=== PATIENT | female | born 1970 | race Caucasian/White ===

== ENCOUNTER 2020-10-09 20:25 | Emergency (ER) | payer OTHER, SELFPAY ==
[2020-10-09 20:36] VITALS: BP 140/75; PULSE 57; RESP 18; TEMP 36.9; O2SAT 99; BMI 44.0
== END 2020-10-09 23:13 | disposition left against medical advice (07) ==
LOC: HO.ED 23:14
PROVIDERS: Emergency Provider Emergency Medicine; PCP Pediatrics
DX: R11.2 Nausea with vomiting, unspecified (principal)
CPT/HCPCS: 99281; 99282

== ENCOUNTER → 2021-10-17 13:00 | Outpatient (BNVA) | payer OTHER, SELFPAY | PROVIDERS: PCP Nurse Practitioner Family; Referring Provider Physician Assistant Surgical; Visit Provider Counselor Mental Health | DX: F43.20 Adjustment disorder, unspecified (principal); E66.01 Morbid (severe) obesity due to excess calories | CPT/HCPCS: 90791 ==

== ENCOUNTER 2021-10-18 12:34 | Outpatient (REF) | payer OTHER, SELFPAY ==
--- NOTE | ~2021-10-18 | XR_ITS ---
EXAMINATION: XR CHEST CLINICAL INFORMATION: Bariatric service evaluation, E66.01 COMPARISON: Chest radiographs 11/28/2018 TECHNIQUE: 2 views of the chest were obtained. FINDINGS: Lungs are clear. No hyperinflation, infiltrate, or effusion. The cardiopericardial silhouette is normal in size. The vascularity is normal. The hilar and mediastinal contours and visualized bony structures are unremarkable. XR/XR chest 2V IMPRESSION: Unremarkable examination.
--- NOTE | 2021-10-18 13:15 | ECG_ITS ---
Test Reason : PREOP Blood Pressure : / mmHG Vent. Rate : 061 BPM Atrial Rate : 061 BPM P-R Int : 142 ms QRS Dur : 088 ms QT Int : 398 ms P-R-T Axes : 030 010 010 degrees QTc Int : 400 ms Normal sinus rhythm Normal ECG No previous ECGs available Referred By: Kalyan Schwab Electronically Signed By:Yrn Valdovinos
[2021-10-18 13:39] LABS: MANUAL DIFF FLAG NO
[2021-10-18 13:52] LABS: Basophils Percent Auto 0.3 % (0-2); Eosinophils Absolute Auto 0.2 X10*3/uL (0.0-0.4); Eosinophils Percent Auto 2.2 % (0-4); Hematocrit 38.6 % (37.0-47.0); Hemoglobin 12.7 g/dl (12.0-16.0); Imm Gran Abs Auto 0.02 X10*3/uL (0.00-0.03); Imm Gran Pct Auto 0.3 % (0.0-0.4); Lymphocytes Absolute Auto 1.1 X10*3/uL (1.2-4.9); Lymphocytes Percent Auto 15.8 % (20-40); Mean Corpuscular HGB Conc 32.9 g/dl (31.0-35.0); Mean Corpuscular Hemoglobin 31.7 pg (27.0-33.0); Mean Corpuscular Volume 96.3 fL (80.0-98.0); Mean Platelet Volume 10.3 fL (9.4-12.3); Monocytes Absolute Auto 0.6 X10*3/uL (0.1-1.2); Monocytes Percent Auto 8.4 % (2-11); Neutrophils Absolute Auto 5.2 x10*3/uL (2.0-8.3); Platelet Count 244 X10*3/uL (160-400); Red Blood Count 4.01 X10*6/uL (4.20-5.50); Red Cell Distribution Width 12.1 % (11.0-16.0); White Blood Count 7.2 X10*3/uL (4.8-10.8)
[2021-10-18 14:16] LABS: Alanine Aminotransferase 27 U/L (0-31); Albumin Level 4.2 g/dL (3.5-5.0); Alkaline Phosphatase 75 U/L (39-117); Anion Gap 12 (12-20); Aspartate Amino Transferase 23 U/L (5-31); Bilirubin Total 0.6 mg/dL (0.0-1.0); Blood Urea Nitrogen 16 mg/dL (9-16); C Reactive Protein 0.59 mg/dL (< or = 0.50); Carbon Dioxide 26 mmol/L (22-29); Chloride 106 mmol/L (96-108); Cholesterol 159 mg/dL; Estimated Glomerular Filt Rate > 60; Glucose Random 88 mg/dL (60-115); HDL Cholesterol 42 mg/dL; Iron 66 mcg/dL (30-160); LDL Cholesterol Calculated 105 mg/dl; Percent Iron Saturation 18 % (15-50); Potassium 4.6 mmol/L (3.3-5.1); Sodium 139 mmol/L (135-145); Total Iron Binding Capacity 375 mcg/dL (228-428); Total Protein 7.7 g/dL (6.5-8.0); Triglycerides 61 mg/dL; Unsaturated Iron Binding 309 ug/dL
[2021-10-18 14:41] LABS: Insulin 7 uU/mL (2-29)
[2021-10-18 14:42] LABS: Estimated Average Glucose 108 mg/dL; Hemoglobin A1c % 5.4 %
[2021-10-18 14:50] LABS: Ferritin 74 ng/mL (10-250); Folate 8.6 ng/mL (> or = 4.0); TSH reflex Free T4 1.73 uIU/mL (0.32-4.0); Vitamin B12 478 pg/mL (200-900); Vitamin D 25-OH Total 23.5 ng/mL (>30)
[2021-10-22 12:11] LABS: Calcium (PTHI) 9.5 mg/dL (8.6-10.4); PTHI 114 pg/mL (16-77)
[2021-10-22 16:42] LABS: Zinc 75 mcg/dL (60-130)
[2021-10-23 09:47] LABS: Vitamin A 26 mcg/dL (38-98)
[2021-10-26 16:01] LABS: Vitamin B1 7 nmol/L (8-30)
== END 2021-10-18 12:35 | disposition home or self-care (01) ==
LOC: HO.XRAY 12:34
PROVIDERS: PCP Nurse Practitioner Family; Visit Provider Surgery
DX: E66.01 Morbid (severe) obesity due to excess calories (principal); K21.9 Gastro-esophageal reflux disease without esophagitis
CPT/HCPCS: 36415; 71046; 80053; 80061; 82306; 82607; 82728; 82746; 83036; 83525; 83540; 83970; 84425; 84443; 84590; 84630; 85025; 86140; 93005

== ENCOUNTER 2021-10-18 16:16 | Outpatient (REF) | payer OTHER, SELFPAY ==
[2021-10-19 11:35] LABS: H Pylori Breath Test Negative (Negative)
== END 2021-10-18 16:17 | disposition home or self-care (01) ==
LOC: HO.LNP 16:16
PROVIDERS: Visit Provider Surgery
DX: E66.01 Morbid (severe) obesity due to excess calories (principal); K21.9 Gastro-esophageal reflux disease without esophagitis; Z11.0 Encounter for screening for intestinal infectious diseases
CPT/HCPCS: 83013

== ENCOUNTER → 2021-11-05 10:55 | Outpatient (BNVA) | payer OTHER, SELFPAY | PROVIDERS: PCP Nurse Practitioner Family; Referring Provider Physician Assistant Surgical; Visit Provider Dietitian, Registered | DX: E66.01 Morbid (severe) obesity due to excess calories (principal) | CPT/HCPCS: 97802 ==

== ENCOUNTER → 2021-11-22 11:39 | Outpatient (BNVA) | payer OTHER, SELFPAY | PROVIDERS: PCP Nurse Practitioner Family; Referring Provider Physician Assistant Surgical; Visit Provider Dietitian, Registered | DX: E66.01 Morbid (severe) obesity due to excess calories (principal) | CPT/HCPCS: 97803 ==

== ENCOUNTER 2021-11-26 10:04 | Outpatient (REF) | payer OTHER, SELFPAY ==
--- NOTE | ~2021-11-26 | US_ITS ---
EXAMINATION: US COMPLETE ABDOMEN WITH LIVER ELASTOGRAPHY CLINICAL INFORMATION: Morbid obesity. COMPARISON: None. TECHNIQUE: Real-time imaging of the abdominal viscera. Noninvasive ultrasound liver fibrosis assessment is performed using Ehsan ElastPQ point quantification shear wave elastography (2D-SWE) with a C5-2 MHz transducer. Multiple elastography samples are obtained. FINDINGS: PANCREAS: Normal. The visualized pancreatic head and body are normal in appearance. The remainder of the pancreas is obscured from visualization by the overlying bowel gas. ABDOMINAL AORTA: The proximal, middle, and distal aortic segments are normal in caliber. INFERIOR VENA CAVA: Visualized portions are normal. LIVER: The liver demonstrates normal size, contour and increased echogenicity. No focal lesion or intrahepatic biliary duct dilatation. The right lobe measures 14.3 cm in length. The left lobe measures 11.8 cm in length. Portal flow is hepatopedal Shear wave liver elastography median stiffness is 1.39 m/s (reference: normal median stiffness is 1.3 m/s or less). IQR/median stiffness to assess sampling precision is 0.08 (reference: good quality data set is IQR/median stiffness of 0.15 or less). GALLBLADDER: The gallbladder is physiologically distended without evidence of stones, sludge, polyps, wall thickening or pericholecystic fluid. COMMON BILE DUCT: Normal in caliber measuring 0.4 cm in diameter. RIGHT KIDNEY: Normal. No hydronephrosis. No renal calculi or focal parenchymal lesions. The kidney measures 10.2 cm in maximum dimension. LEFT KIDNEY: Normal. No hydronephrosis. No renal calculi or focal parenchymal lesions. The kidney measures 10.2 cm in maximum dimension. SPLEEN: Normal. The spleen measures 9.6 cm in maximum dimension. FREE FLUID: None. US/US abdomen comp w elastography IMPRESSION: 1. Diffuse hepatic steatosis without focal lesion. The rest of the abdominal ultrasound is unremarkable. 2. Liver elastography: Median liver stiffness measures 1.39 m/s which corresponds to high probability normal. REFERENCE: Society of Radiologists in Ultrasound Liver Stiffness Thresholds (2020): LIVER STIFFNESS THRESHOLDS: *Liver Stiffness equal or less than 1.3 m/s: High probability of being normal. *Liver Stiffness less than 1.7 m/s: In the absence of other known clinical signs, rules out compensated advanced chronic liver disease. *Liver Stiffness 1.7-2.1 m/s: Suggestive of compensated advanced chronic liver disease but need further test for confirmation. *Liver Stiffness over 2.1 m/s: Rules in compensated advanced chronic liver disease. *Liver Stiffness over 2.4 m/s: Suggestive of clinically significant portal hypertension. QUALITY OF DATA SET: *IQR/Median value equal or less than 0.15 implies a quality data set. *IQR/Median value over 0.15 implies a poor quality data set. SIGNIFICANT CHANGE FROM PRIOR EXAM: Significant change if liver stiffness measurement is 10% or greater from prior exam. OTHER CONSIDERATIONS: The stage of liver fibrosis may be overestimated in the setting of acute hepatitis, liver inflammation, elevated liver function tests, hepatic vascular congestion, obstructive cholestasis, non-fasting state, and infiltrative diseases such as amyloidosis and lymphoma. In some patients with NAFLD, the liver stiffness thresholds for compensated advanced chronic liver disease may be lower. In causes other than viral hepatitis and NAFLD, liver stiffness thresholds are not well established.
--- NOTE | ~2021-11-26 | FL_ITS ---
EXAMINATION: XR FLUOROSCOPY UPPER GI WITH AIR CLINICAL INFORMATION: Morbid/severe obesity due to excess calories. COMPARISON: None TECHNIQUE: Routine upper GI with air-contrast study was performed. FINDINGS: Following oral administration of thick barium and effervescent granules, there is normal propagation of bolus from the oral cavity, pharynx, esophagus into the stomach without any evidence of obstruction, intraluminal filling defect or narrowing. The course, caliber and peristalsis of the stomach and the duodenum is normal. The mucosal pattern of the stomach and the duodenum is normal. FLUOROSCOPY TIME: 1.7 minutes DOSE AREA PRODUCT: 51.997 uGy-m2 (microgray-meter squared) FL/FL upper GI w air IMPRESSION: Unremarkable upper GI air-contrast study.
== END 2021-11-26 10:05 | disposition home or self-care (01) ==
LOC: HO.US 10:04
PROVIDERS: Visit Provider Surgery
DX: E66.01 Morbid (severe) obesity due to excess calories (principal); K21.9 Gastro-esophageal reflux disease without esophagitis
CPT/HCPCS: 74246; 76705; 76981

== ENCOUNTER → 2022-06-27 08:43 | Outpatient (BNVA) | payer OTHER, SELFPAY | PROVIDERS: PCP Nurse Practitioner Family; Visit Provider Surgery | DX: E66.01 Morbid (severe) obesity due to excess calories (principal) ==

== ENCOUNTER → 2022-07-02 11:09 | Outpatient (BNVA) | payer OTHER, SELFPAY | PROVIDERS: PCP Nurse Practitioner Family; Visit Provider Dietitian, Registered | DX: E66.9 Obesity, unspecified (principal) | CPT/HCPCS: 97803 ==

== ENCOUNTER → 2022-07-08 14:58 | Outpatient (BNVA) | payer OTHER, SELFPAY | PROVIDERS: PCP Nurse Practitioner Family; Visit Provider Counselor Mental Health | DX: Z13.89 Encounter for screening for other disorder (principal) ==

== ENCOUNTER → 2022-07-21 08:12 | Outpatient (BNVA) | payer OTHER, SELFPAY | PROVIDERS: PCP Nurse Practitioner Family; Visit Provider Surgery | DX: Z13.89 Encounter for screening for other disorder (principal) ==

== ENCOUNTER → 2022-07-25 13:25 | Outpatient (BNVA) | payer OTHER, SELFPAY | PROVIDERS: PCP Nurse Practitioner Family; Visit Provider Dietitian, Registered | DX: E66.01 Morbid (severe) obesity due to excess calories (principal) | CPT/HCPCS: 97803 ==

== ENCOUNTER → 2022-08-22 07:59 | Outpatient (BNVA) | payer OTHER, SELFPAY | PROVIDERS: PCP Nurse Practitioner Family; Visit Provider Surgery ==

== ENCOUNTER → 2022-09-15 08:14 | Outpatient (BNVA) | payer OTHER, SELFPAY | PROVIDERS: PCP Nurse Practitioner Family; Visit Provider Surgery ==

== ENCOUNTER → 2022-09-19 12:38 | Outpatient (BNVA) | payer OTHER, SELFPAY | PROVIDERS: PCP Nurse Practitioner Family; Visit Provider Surgery ==

== ENCOUNTER → 2022-09-23 08:04 | Outpatient (BNVA) | payer OTHER, SELFPAY | PROVIDERS: PCP Nurse Practitioner Family; Visit Provider Surgery ==

== ENCOUNTER 2022-09-26 07:37 | Outpatient (REF) | payer OTHER, SELFPAY ==
[2022-09-26 08:05] LABS: MANUAL DIFF FLAG NO
[2022-09-26 08:27] LABS: Basophils Percent Auto 0.6 % (0-2); Eosinophils Absolute Auto 0.1 X10*3/uL (0.0-0.4); Eosinophils Percent Auto 2.7 % (0-4); Hematocrit 38.2 % (37.0-47.0); Hemoglobin 12.5 g/dl (12.0-16.0); Imm Gran Abs Auto 0.01 X10*3/uL (0.00-0.03); Imm Gran Pct Auto 0.2 % (0.0-0.4); Lymphocytes Absolute Auto 0.9 X10*3/uL (1.2-4.9); Lymphocytes Percent Auto 17.5 % (20-40); Mean Corpuscular HGB Conc 32.7 g/dl (31.0-35.0); Mean Corpuscular Hemoglobin 31.3 pg (27.0-33.0); Mean Corpuscular Volume 95.7 fL (80.0-98.0); Mean Platelet Volume 10.3 fL (9.4-12.3); Monocytes Absolute Auto 0.5 X10*3/uL (0.1-1.2); Monocytes Percent Auto 8.6 % (2-11); Neutrophils Absolute Auto 3.7 x10*3/uL (2.0-8.3); Neutrophils Percent Auto 70.4 % (45-73); Platelet Count 233 X10*3/uL (160-400); Red Blood Count 3.99 X10*6/uL (4.20-5.50); Red Cell Distribution Width 11.9 % (11.0-16.0); White Blood Count 5.3 X10*3/uL (4.8-10.8)
[2022-09-26 08:33] LABS: INTERNATIONAL NORM RATIO 1.1 (0.9-1.1); Prothrombin Time 13.2 SEC (10.0-13.1)
[2022-09-26 08:35] LABS: Partial Thromboplastin Time 28.9 SEC (26.0-36.4)
[2022-09-26 08:51] LABS: Estimated Average Glucose 100 mg/dL; Hemoglobin A1c % 5.1 %
[2022-09-26 09:04] LABS: Alanine Aminotransferase 18 U/L (0-31); Albumin Level 3.9 g/dL (3.5-5.0); Alkaline Phosphatase 83 U/L (39-117); Anion Gap 16 (12-20); Aspartate Amino Transferase 22 U/L (5-31); Bilirubin Total 0.8 mg/dL (0.0-1.0); Blood Urea Nitrogen 14 mg/dL (9-16); C Reactive Protein 0.79 mg/dL (< or = 0.50); Calcium 9.6 mg/dL (8.4-10.2); Carbon Dioxide 21 mmol/L (22-29); Chloride 106 mmol/L (96-108); Cholesterol 155 mg/dL; Estimated Glomerular Filt Rate > 60; Glucose Random 86 mg/dL (60-115); HDL Cholesterol 34 mg/dL; LDL Cholesterol Calculated 105 mg/dl; Potassium 4.2 mmol/L (3.3-5.1); Sodium 139 mmol/L (135-145); Total Protein 7.7 g/dL (6.5-8.0); Triglycerides 81 mg/dL
[2022-09-26 09:20] LABS: Insulin 9 uU/mL (2-29); TSH reflex Free T4 2.46 uIU/mL (0.32-4.0)
== END 2022-09-26 07:38 | disposition home or self-care (01) ==
LOC: HO.LAB 07:37
PROVIDERS: PCP Nurse Practitioner Family; Visit Provider Surgery
DX: E66.01 Morbid (severe) obesity due to excess calories (principal)
CPT/HCPCS: 36415; 80053; 80061; 83036; 83525; 84443; 85025; 85610; 85730; 86140

== ENCOUNTER 2022-10-01 05:55 | Day surgery (SDC) | payer OTHER, SELFPAY ==
[2022-09-24 09:57] VITALS: BMI 41.8
--- NOTE | 2022-09-27 14:43 | MHC.SHP ---
Pre-Procedural Eval Section A Date of Service: 09/27/22 The patient is an INPATIENT: No The History & Physical has been completed within 30 days and I have reviewed it.: Yes Section B Chief Complaint: Morbid (severe) obesity due to excess calories Relevant Family History (Specify if Yes): No Relevant Social History: None Present Medications: None History of Previous Operations: No relevant previous surgery Allergies: Allergies Allergy/AdvReac Type Severity Reaction Status Date / Time No Known Allergies Allergy Verified 09/23/22 13:49 [No Known Allergies*] Review of Systems Sugical H&P ROS: Negative: Constitution, Cardiovascular, Respiratory, Neurological, Psychiatric, Hem-Onc, Allergic/Immunologic, Gastrointestinal, Genitourinary, Musculoskeletal, Integumentary, Endocrine and Eyes/Ears/Nose/Throat Exam Surgical H&P Exam: Normal: HEENT, Normal: Heart, Normal: Lungs, Normal: Extremities, Normal: Abdomen, Normal: Skin and Normal: Neurological Plan Diagnosis/Plan: Unchanged I have reviewed the history and physical and performed a pertinent physical examination on my patient. No changes have occurred unless specified. Time Spent With Patient Time: Total time managing care of this patient today ____ minutes.
--- NOTE | 2022-09-30 09:49 | P.CONAN_ITS ---
Documented by User: Nan Fisher NP 09/30/22 09:51 HPI - Anesthesia Eval Consult details Narrative: 52yo F for Gastrectomy Sleeve EGD,poss diaphragmatic hernia, poss ventral hernia,poss open PMFSH Active Problems Active Problems: All Active Problems (Updated 12/02/21 @ 11:53 by Kalyan Schwab MD) Vitamin D deficiency (Acute) Vitamin A deficiency (Acute) Vitamin B1 deficiency (Acute) Adjustment disorder (Acute) GERD (gastroesophageal reflux disease) (Acute) Morbid obesity (Acute) Past Medical History Medical History Anxiety Obesity Reflux gastritis Family History Family History Mother Diabetes Father Diabetes Heart problem Sister Obesity Insomnia Brother Diabetes Brother No problems noted. Brother No problems noted. Brother No problems noted. Son No problems noted. Son No problems noted. Son No problems noted. Son No problems noted. Surgical History Surgical History Delivery by section Hx of tonsillectomy Social History Social History Are you a primary out of school hours care worker to a significant other at home: No Do you presently have visiting nurse or other home services: No Alcohol intake: current Alcohol intake frequency: holidays/special occasions only Patient Tobacco Use Status: Never used Tobacco Use of substances other than those prescribed or required for medical reasons: Yes Substance Use Frequency: Occasionally Have you been hit, kicked, punched, or otherwise hurt by someone within the past year? If so, by whom?: No Are you DNR?: No Advance Directives: No Advance Directives Information Provided: Yes Advance Directives on File: No Recently lost weight without trying: No Nutrition Risks: No Nutritional Risk Poor oral hygiene: Yes (one broken molar on left) Meds Allergies Allergy/AdvReac Type Severity Reaction Status Date / Time No Known Allergies Allergy Verified 09/23/22 13:49 [No Known Allergies*] Home Medications Medication Instructions Recorded Confirmed Last Taken Type omeprazole 20 mg capsule,delayed 20 mg PO DAILY PRN Acid Reflux 09/24/22 09/24/22 Unknown History release Exam Exam Date and Time: September 30, 2022 0949 Height,Weight and Vital Signs: Height 5 ft 1 in Weight 100.244 kg Pertinent Lab Results Pertinent Lab Results: Laboratory Tests 09/26/22 08:00 Blood Type O Positive Antibody Screen NEGATIVE Laboratory Tests 09/26/22 09/26/22 08:02 08:02 WBC 5.3 Hgb 12.5 Hct 38.2 Plt Count 233 Sodium 139 Potassium 4.2 Chloride 106 Carbon Dioxide 21 L BUN 14 Creatinine 0.82 Narrative Narrative: EKG 2021 Vent. Rate : 061 BPM ? ? Atrial Rate : 061 BPM ?? P-R Int : 142 ms? QRS Dur : 088 ms ? ? QT Int : 398 ms ? ? ? P-R-T Axes : 030 010 010 degrees ?? QTc Int : 400 ms ? Normal sinus rhythm Normal ECG No previous ECGs available Assessment and Plan Assessment Anesthesia Assessment: Chart Reviewed Documented by User: Santo Camar[place] MD 10/01/22 07:17 [facility] Past Medical History Medical History Anxiety Obesity Reflux gastritis Family History Family History Mother Diabetes Father Diabetes Heart problem Sister Obesity Insomnia Brother Diabetes Brother No problems noted. Brother No problems noted. Brother No problems noted. Son No problems noted. Son No problems noted. Son No problems noted. Son No problems noted. Family history of problems with anesthesia: No Surgical History Surgical History Delivery by section Hx of tonsillectomy History of Problems with Anesthesia: No Social History Social History Are you a primary out of school hours care worker to a significant other at home: No Do you presently have visiting nurse or other home services: No Alcohol intake: current Alcohol intake frequency: holidays/special occasions only Patient Tobacco Use Status: Never used Tobacco Use of substances other than those prescribed or required for medical reasons: Yes Substance Use Frequency: Occasionally Have you been hit, kicked, punched, or otherwise hurt by someone within the past year? If so, by whom?: No Are you DNR?: No Advance Directives: No Advance Directives Information Provided: Yes Advance Directives on File: No Recently lost weight without trying: No Nutrition Risks: No Nutritional Risk Poor oral hygiene: Yes (one broken molar on left) Meds Allergies Allergy/AdvReac Type Severity Reaction Status Date / Time No Known Allergies Allergy Verified 09/23/22 13:49 [No Known Allergies*] Home Medications Medication Instructions Recorded Confirmed Last Taken Type omeprazole 20 mg capsule,delayed 20 mg PO DAILY PRN Acid Reflux 09/24/22 09/24/22 Unknown History release Exam Airway Mallampati Class: II TM Dist: >3cm Neck ROM: Full Loose/Missing/Broken Teeth: Yes (nothing loose but poor dentition lower teeth) Heart: rrr+[id number] Lungs: CTA b/l Assessment and Plan Assessment Anesthesia Assessment: Anesthesia Plan Discussed Final Anesthetic Review Family History of Problems with Anesthesia: No History of Problems with Anesthesia: No NPO: Yes ASA Class: II Final Preanesthetic Review: No Changes in Pt Med Stat, Meds/Allgs Chart Reviewed, Consent Obtained/Reviewed and Anes Risks/Benef Reviewed Patient Risk: Intermediate Procedure Risk: Intermediate Assessment/Block/Sedation in SS: Assess/Block/Sedation-SS Anesthetic Plan Anesthetic Plan: GA and Agree w/ Assess. and Plan Disposition: Standard PACU
[2022-09-30 13:43] LABS: COVID-19 Test Negative (Negative); IDNOW Serial# BCCEAD1C
[2022-10-01] VITALS (13 sets, daily range): BP systolic 109–127; BP diastolic 56–75; PULSE 52–65; RESP 14–20; TEMP 35.8–36.1; O2SAT 94–100; BMI 40.4
[2022-10-01] MEDS: Lactated Ringers 1,000 ML 999 ML IV (06:37)
[2022-10-01] MEDS: Aprepitant 32 MG/4.4 ML VIAL IVPUSH (07:06)
--- NOTE | 2022-10-01 07:54 | PM.OP ---
Brief Operative Note Date of Service: 10/01/22 Pre-op diagnosis: Morbid obesity with comorbidities (see below) Post-op diagnosis: same Procedure: INITIAL PATIENT BMI ON PRESENTATION AT OUR OFFICE: 46.3 kg/m2 LAST BMI BEFORE SURGERY: 42.4 kg/m2 COMORBIDITIES: GERD, liver steatosis, ?The patient presented to the Weight Management Program with significant obesity that was negatively impacting the patient's comorbidities as listed above.? The program is a phased program with a special focus on preoperative medical weight management to promote substantial weight loss and prepare the patients for the second phase of the program: bariatric surgery. The patient participated in an intensive weekly lifestyle ?intervention and exercise program during which the patient ?has lost between the initial office visit and the last preoperative visit 21.6lbs, or 8.89% of initial actual body weight. It was deemed appropriate for the patient to now have bariatric surgery. In light of the current Covid-19 pandemic and the well documented strong association of obesity and increased risk of worse outcomes if infected with Covid-19 (REFERENCES:https://pubmed.ncbi.nlm.nih.gov/55490322/,?https://pubmed.ncbi.nlm.nih.gov/10355926/), any delay in undergoing bariatric surgery may lead to the patient's worsening health condition and increased?risk of more severe Covid-19 disease if infected. In addition a recent?study from [facility] published in [employer] on 04/08/2021 ([email or web address]) found that, among patients with obesity, substantial weight loss achieved with surgery was associated with improved outcomes of COVID-19 infection. The findings suggest that obesity can be a modifiable risk factor for the severity of COVID-19 infection. In addition, the patient met the BMI-criteria for bariatric surgery based on the BMI on initial presentation. The patient should not be penalized for achieving such weight loss because ?it is not sustainable long-term without surgical intervention and it was achieved in preparation for bariatric surgery ?under my direction and based on my published research ([email or web address]).pdf and?https://www.soard.org/article/V3144-7205(72)55584-X/pdf) ?that a 10% preoperative weight loss improves long-term weight loss after surgery and reduces perioperative complications.? Insurance carriers such as [facility] have endorsed my recommendations ?and have included in their policies criteria to include a 10% preoperative weight loss requirement. PROCEDURE: Esophago-gastroscopy,laparoscopic lysis of adhesions, laparoscopic sleeve gastrectomy and laparoscopic gastropexy INDICATIONS: This is a 52 year-old female who was electively scheduled for laparoscopic, possibly open sleeve gastrectomy. The risks and complications of the procedure were discussed with the patient in advance, particularly the possibility of ; pulmonary embolism; staple line leak; bleeding; GERD; cardiac, pulmonary, or renal complications; as well as long-term problems such as insufficient weight loss, vitamin deficiency, strictures, or ulcers. The patient understood all the risks, and was in agreement to proceed with surgery. DESCRIPTION OF PROCEDURE: After informed consent was obtained from the patient, the patient was given preoperative antibiotics, and was transferred to the operating room. After successful induction of general anesthesia, pneumatic compression devices were placed on both lower extremities. An upper endoscopy was performed next. The oropharynx and esophagus appeared to be within normal limits. There was no diaphragmatic hernia present consistent with the findings of the preoperative upper GI. The stomach was entered. Then after all fluid and air were suctioned and the stomach was fully decompressed, the scope was withdrawn and secured in the mid esophagus. The patient was then prepped and draped in the usual sterile manner, and abdominal access was established at the right upper quadrant with the Sherif technique. A 12 mm blunt port was inserted, and the abdomen was insufflated with CO2 to a pressure of 15 mmHg. Under direct visualization, additional ports were placed, specifically two 5 mm Versi-step ports to the left upper quadrant, and a 5 mm Versi-Step port to the right upper quadrant. 1% lidocaine plain was used to infiltrate all port sites as well as all fascia defects. There were adhesions in the abdomen from previous involving the omentum and the anterior abdominal wall. Those were lysed completely with the ultrasonic device. Following that, the patient was placed in a steep reverse Trendelenburg position. An additional 5 mm port was placed to the right flank for the Mediflex retractor that was used to retract the left lobe of the liver. The gastro-esophageal fat pad was opened with the ultrasonic device (Thunderbeat, Olympus) and the anterior esophagus and hiatus were exposed. The angle of His was opened with the ultrasonic device the fundus of the stomach from any diaphragmatic and splenic attachments. I then opened the gastrocolic ligament between the transverse colon and the greater curvature of the stomach with the ultrasonic device to enter the lesser sac and facilitate the ligation of the short gastric vessels. I started at a mid-point along the greater curvature and using the Thunderbeat, all short gastric vessels were divided all the way to the angle of His until the left carlos enrique was completely dissected at its entirety. I then divided the gastro-colic ligament distally to a distance of about 3-4 cm proximal to the pylorus. The stomach was then divided transversely with one Endo NASREEN-45 purple and four NASREEN-60 articulating orange loads using the [employer] stapler and loads. Every effort was made that the gastric sleeve had a tubular shape and an even caliber throughout. Once the sleeve resection was completed, the staple line of the gastric sleeve was reinforced with Hemoclips. The resected stomach was retrieved without difficulty from the Sherif port. A gastropexy was then performed in order to prevent postoperative GERD and partial gastric volvulus. Several interrupted 2.0 Surgidac sutures were placed between the sleeve's staple line and the previously divided greater omentum and gastro-colic ligament using the Endo-Stitch device. ?An upper endoscopy was performed. There was no narrowing at the GE junction. The scope was easily advanced all the way to the pylorus which was clearly visualized. There was no narrowing anywhere and the sleeve's caliber was even throughout. The sleeve's staple line was inspected and there was no evidence of ischemia, bleeding or dehiscence. At that point the gastroscope was withdrawn from the patient?s mouth while we were decompressing the bowel and the stomach from any remaining air. I looked into the lesser sac to see how the sleeve was situating and it was situating well. There was no bleeding from the staple line, spleen, or short gastric vessels. The Mediflex retractor was removed, and the undersurface of the liver was inspected and there was no bleeding. The patient was placed in supine position. I closed the fascial defect of the 12 mm port site with a figure of eight #1 Polysorb suture. Then 30cc Ropivacaine plain with 10 mg of Dexamethasone were used to infiltrate the fascial closure as well as all skin incisions. A total of 7ml Zynrelef was applied in the Sherif wound. At this point, the abdomen was deflated, all ports were removed under direct vision, and no bleeding was noted from any of the port sites. The skin incisions were irrigated with saline and were closed with 4-0 absorbable monofilament sutures. Steri-Strips and OpSites were used to cover all incisions. The patient was extubated and was transferred in stable condition to the recovery room for further care. I was present and performed all street parts of the procedure. Ms. Woodruff was the virtual customer assistant. There were no residents to assist with this case. Zen Schwab MD, PhD, FACS Surgeon: Kalyan Schwab MD Anesthesia: GETA, local and other (TAP block and 7ml Zynrelef) Was an Material Man used for this Procedure?: Yes Material Man: Allie Woodruff Estimated blood loss (mL): 10 IV fluids (mL): 2,000 Urine output (mL): 0 (No Brown to record output) Pathology: other (Stomach) Condition: stable Disposition: PACU
--- NOTE | 2022-10-01 07:55 | PM.PNGS ---
Subjective Subjective Date of Service: 10/02/22 Interval history: Feels well. Mild incisional pain. She is tolerating phase 1 bariatric diet Physical Exam Vital Signs: Vital Signs: Last Vital Signs Temp 96.4 F L 10/01/22 06:31 Pulse 63 10/01/22 06:31 Resp 18 10/01/22 06:31 BP 123/69 10/01/22 06:31 Pulse Ox 977 H 10/01/22 06:31 O2 Del Method Room Air 10/01/22 06:31 BMI result Body Mass Index 40.4 GI: Inspection: Yes normal to inspection, Yes incision (clean, dry and intact) and Yes obesity Palpation (GI): Soft to palpation Extrem: Right lower extremity: normal to inspection (no calf tenderness) Left lower extremity: normal to inspection (no calf tenderness) Objective Data Active Medications Fentanyl (Fentanyl Citrate/Pf 100 Mcg/2 Ml Vial) 50 mcg IVPUSH Q5M PRN; Protocol PRN Reason: Pain, Moderate(Pain Scale 4-6) Hydromorphone HCl (Hydromorphone Hcl 0.5 Mg/0.5 Ml Syringe) 0.5 mg IVPUSH Q5M PRN; Protocol PRN Reason: Pain, Severe (Pain Scale 7-10) Lactated Ringer's (Lr) 1,000 mls @ 100 mls/hr IVCONT .Q10H NIKITA Lactated Ringer's (Lr) 1,000 mls @ 999 mls/hr IV .Q1H1M NIKITA Stop: 10/01/22 08:00 Last Admin: 10/01/22 06:37 Dose: 999 mls/hr Documented By: LILI Promethazine HCl 6.25 mg/ (Sodium Chloride) 50.25 mls @ 201 mls/hr IV ONCE PRN PRN Reason: Nausea and Vomiting Ondansetron HCl (Ondansetron Hcl 4 Mg/2 Ml Vial) 4 mg IVPUSH ONCE PRN PRN Reason: Nausea and Vomiting Labs 10/02/22 04:58 10/02/22 04:58 Labs: Laboratory Results - last 24 hr 09/30/22 12:40 COVID-19 (MIGUE) Negative COVID-19 Clin Com See Note Procedures Date of Service Date of Service: 10/02/22 Progress Note: A&P Assessment and plan (1) Morbid obesity: Status: Acute Assessment and Plan: s/p laparoscopic sleeve gastrectomy, lysis of adhesions and gastropexy Doing well Will check am labs and if OK the patient will be discharged home (2) GERD (gastroesophageal reflux disease): Status: Acute (3) Steatosis, liver: Status: Acute (4) S/P laparoscopic sleeve gastrectomy: Status: Acute (5) Intra-abdominal adhesions: Status: Acute Time Spent With Patient Time: Total time managing care of this patient today ____ minutes. Quality Stroke Does the patient have a stroke diagnosis?: No VTE Prior VTE?: No VTE Risk Level:: Surgical - moderate VTE Device Contraindication: N/A - Device Ordered VTE Drug Contraindication: Treatment Not Indicated
--- NOTE | 2022-10-01 09:21 | PHA.MEDREC ---
Pharmacy Consult ? Medication Reconciliation Pharmacy has reviewed the medication reconciliation.
--- NOTE | 2022-10-01 09:35 | P.DS_ITS ---
DS: Providers Provider Date of Service: 10/02/22 Primary care physician: Berna Cantu NP DS: Diagnosis Discharge Diagnosis (1) Morbid obesity: Status: Acute (2) GERD (gastroesophageal reflux disease): Status: Acute (3) Steatosis, liver: Status: Acute DS: Summary Hospital Course Hospital Course: ADMITTING DIAGNOSIS: morbid obesity, GERD DISCHARGE DIAGNOSIS: same, s/p laparoscopic sleeve gastrectomy PAST SURGICAL HISTORY: section PROCEDURE: upper endoscopy, laparoscopic sleeve gastrectomy DISCHARGE SUMMARY: History of Present Illness: The patient is a 52 year-old woman with a BMI of 46.2 kg/m2 and associated co- morbidities as described above. The patient had extensive work-up, lost 21.6lbs preoperatively and was electively scheduled for laparoscopic, possible open sleeve gastrectomy and gastropexy. Risks and complications of the surgery were discussed with the patient in advance, particularly the possibility of , pulmonary embolism, anastomotic leak, bleeding, bowel injury, GERD, cardiac, renal or pulmonary complications. The patient understood all the risks and was in agreement with the surgical plan. Hospital Course: The patient underwent an uneventful laparoscopic sleeve gastrectomy with g astropexy on the day of admission. Postoperatively, the patient was transferred to the surgical floor. The patient received IV Acetaminophen and IV dilaudid for pain control. Patient was started on bariatric phase 1 diet POD #0. On postoperative day one, the patient was feeling well without nausea, vomiting, fevers, or tachycardia. The patient had some mild incisional pain and the abdomen was soft. On the morning of postoperative day one, the patient was continued on 1 ounce of water or ice every half hour. During the day, the patient did fairly well, having some incisional pain, but able to ambulate adequately and to tolerate liquids well. Since the patient is doing well, we decided that the patient was ready to be discharged. The patient was given instructions to follow-up with me next week and to call my office for any fever over 101, persistent abdominal pain, nausea, vomiting, GERD, symptoms of DVT such as calf tenderness, or leg swelling, or pulmonary embolism such as chest pain or shortness of breath. The patient was also instructed to drink 40-60 ounces of liquids per day using the 1-ounce cups. The patient had been given prescriptions for Tylenol for pain, Zofran prn for nausea, and pantoprazole and carafate previously. The patient was encouraged to ambulate and use the incentive spirometer. The patient was allowed to shower, but no baths, and encouraged to stay active at home. All of these instructions were given to the patient personally. All questions were answered and the patient understood all instructions, the instructions were also given to the patient in print. Time Spent with Patient Time attestation: Total time managing care of this patient today ____ minutes. Discharge coordination time: Less than 30 minutes Quality: Safe Use of Opioids Does Pt have an Active Cancer Diagnosis on the Problem List?: No Quality: Stroke Does the patient have a stroke diagnosis?: No Physical Exam Vital Signs: Vital Signs: Last Vital Signs Temp 96.4 F L 10/01/22 06:31 Pulse 63 10/01/22 06:31 Resp 18 10/01/22 06:31 BP 123/69 10/01/22 06:31 Pulse Ox 977 H 10/01/22 06:31 O2 Del Method Room Air 10/01/22 06:31 BMI result Body Mass Index 40.4 DS: Data Data Completed and Pending Pending studies at discharge: Pending at discharge 10/01/22 08:50 Surgical [PTH] Routine Labs on day of discharge: Laboratory Results - last 24 hr 09/30/22 12:40 COVID-19 ([facility]) Negative COVID-19 Clin Com See Note Discharge Plan Discharge Patient Disposition: Home, Self-Care Referrals: Berna Cantu, [facility] [Primary Care Provider] - 1 Week Discharge Medications: Continued omeprazole 20 mg Capsule,Delayed Release(Dr/Ec) 20 mg PO DAILY PRN (Reason: Acid Reflux) sucralfate 100 mg/mL suspension 10 ml PO BID Qty: 400 2RF ondansetron 4 mg tablet,disintegrating 4 mg PO Q12H Qty: 20 0RF Rx Instructions: Only take one every 12 hours as needed if you have nausea Discontinued thiamine HCl (vitamin B1) 100 mg tablet 100 mg PO DAILY Qty: 30 2RF vitamin A palmitate 10,000 unit capsule 10,000 unit PO .COMPLEX Qty: 30 2RF Rx Instructions: 10,000 units orally one per day; cholecalciferol (vitamin D3) 125 mcg (5,000 unit) capsule 125 mcg PO DAILY Qty: 30 2RF polyethylene glycol 3350 [Miralax] 17 gram powder in packet 17 g PO DAILY Qty: 14 0RF Rx Instructions: Mix each packet with 8oz of water, Crystal light, or Gatorade zero, or Propel and do 7 packets on 09/29/22 and another 7 packets on 09/30/22 Discharge Orders: Discharge Order (Routine); Ordered 10/02/22 Ordered By: Kalyan Schwab Activity on Discharge: No heavy lifting Activity Restrictions/Additional Instructions: No tub baths, sex or returning to work until discussed at first post op appointment. No exercise, alcohol, tobacco or illegal drug use. Continue to use incentive spirometer hourly while awake. Walk in home for 5- 10 minutes every 2 hours during the first week. Continue phase 1 diet today and start phase 2 diet tomorrow morning. Follow all instructions in the bariatric handbook and call with any questions. 1. Please call your doctor or come back to the emergency room should any new symptoms arise. 2. You will receive a courtesy call from [facility] 24-48 hours after discharge. 3. Activity: abstain from alcohol, practice limited stair climbing, no bending, no driving, no exercise, no illicit substances, no lifting, no sex, no tub bath, no work. 4. Diet: continue as discussed with bariatric team.. 5. Dressing Change/Wound Care: Do not change or remove surgical dressings unless they are wet or soiled. 6. Call your doctor if: - Your temperature exceeds 101.5 F - You experience excessive pain or swelling - You have an unexpected reaction to medication - You have excessive bleeding - You experience continued vomiting/nausea - Your incision begins to separate - Your incision shows signs of infection such as increased redness, swelling, excessive pain, heat, or drainage (light blood or clear fluid is normal) 7. General instructions: No lifting greater than 5 lbs for the next 4 weeks[address] within 24 hours of taking narcotic pain medications. If you do not move your bowels in the next 2 days, please take milk of magnesia over the counter. Please follow the post op diet and do not advance your diet until you are seen in the office in about 2 weeks. Please walk around your home every hour or two to prevent blood clots from forming in your legs. You do not need to wake from sleeping to walk. Please sleep in a bed or couch to prevent kinking at the hips and knees. Please take your incentive spirometer (your lung cloth packer) home with you and use it for the next few days to prevent pneumonias. You may shower, no hot tubs, baths or swimming pools. Please call the office with any questions or concerns such as increasing abdominal pain, fever, chills, shortness of breath, chest pain, leg pain or swelling, or redness or drainage from your incisions. Do not hesitate to contact the office with any questions at . The patient's medical history has been reviewed and they are considered low risk for post op DVT and therefore DVT prophylaxis is not considered necessary. Travel after surgery was reviewed. The patient has not disclosed any travel plans during the first 30 days after surgery and they have been advised that within the first 30 days after surgery any bus, plane, train or car travel over 2 hours in duration is contraindicated due to the possibility of developing blood clots from immobility. Any travel, needs to include periods of ambulation of 10 minutes in duration every 2 hours. The patient was instructed to discuss any plans for travel during this period with their bariatric surgeon.
[2022-10-01 10:15] LABS: Hemoglobin 11.7 g/dl (12.0-16.0)
[2022-10-01 11:16] LABS: Anion Gap 14 (12-20); Blood Urea Nitrogen 9 mg/dL (9-16); Calcium 9.1 mg/dL (8.4-10.2); Carbon Dioxide 22 mmol/L (22-29); Chloride 106 mmol/L (96-108); Creatinine Clr Calc Pharmacy 81.5; Estimated Glomerular Filt Rate > 60; Glucose Random 92 mg/dL (60-115); Potassium 4.2 mmol/L (3.3-5.1); Sodium 138 mmol/L (135-145)
[2022-10-01] MEDS: Lactated Ringers 1,000 ML 100 ML IVCONT ×2 (11:40→19:59)
[2022-10-01] MEDS: ceFAZolin Sodium/Dextrose,Iso 2 GM/50 ML PIGGYBACK IV (13:33)
[2022-10-01] MEDS: Acetaminophen 1,000 MG/100 ML PIGGYBACK 400 MG IV (19:57)
[2022-10-01] MEDS: 0.9 % Sodium Chloride Flush 3 ML SYRINGE IVFLUSH (19:58)
[2022-10-01] MEDS: Famotidine/PF 20 MG/2 ML VIAL IVPUSH (19:58)
[2022-10-02] MEDS: Acetaminophen 1,000 MG/100 ML PIGGYBACK 400 MG IV (01:42)
[2022-10-02 03:21] VITALS: BP 111/57; PULSE 78; RESP 16; TEMP 36; O2SAT 95
[2022-10-02 05:41] LABS: Basophils Percent Auto 0.1 % (0-2); Hematocrit 35.6 % (37.0-47.0); Hemoglobin 11.8 g/dl (12.0-16.0); Imm Gran Abs Auto 0.04 X10*3/uL (0.00-0.03); Imm Gran Pct Auto 0.4 % (0.0-0.4); Lymphocytes Absolute Auto 0.6 X10*3/uL (1.2-4.9); Lymphocytes Percent Auto 5.5 % (20-40); MANUAL DIFF FLAG SCAN; Mean Corpuscular HGB Conc 33.1 g/dl (31.0-35.0); Mean Corpuscular Hemoglobin 31.7 pg (27.0-33.0); Mean Corpuscular Volume 95.7 fL (80.0-98.0); Mean Platelet Volume 10.9 fL (9.4-12.3); Monocytes Absolute Auto 0.3 X10*3/uL (0.1-1.2); Monocytes Percent Auto 3.1 % (2-11); Neutrophils Percent Auto 90.9 % (45-73); Platelet Count 233 X10*3/uL (160-400); Red Blood Count 3.72 X10*6/uL (4.20-5.50); Red Cell Distribution Width 11.8 % (11.0-16.0); SCAN SMEAR FLAG 1
[2022-10-02 05:43] LABS: SLIDE REVIEW VERIFIED
[2022-10-02 05:56] LABS: Anion Gap 14 (12-20); Blood Urea Nitrogen 8 mg/dL (9-16); Calcium 9.5 mg/dL (8.4-10.2); Carbon Dioxide 21 mmol/L (22-29); Chloride 106 mmol/L (96-108); Estimated Glomerular Filt Rate > 60; Glucose Random 100 mg/dL (60-115); Potassium 4.7 mmol/L (3.3-5.1); Sodium 136 mmol/L (135-145)
[2022-10-02] MEDS: Lactated Ringers 1,000 ML 100 ML IVCONT (06:03)
[2022-10-02 07:09] VITALS: BP 118/64; PULSE 68; RESP 16; TEMP 36.3; O2SAT 97
[2022-10-02] MEDS: Famotidine/PF 20 MG/2 ML VIAL IVPUSH (07:15)
--- NOTE | 2022-10-02 13:54 | HO.POSTANES ---
Post Anesthesia Evaluation Post Anesthesia Evaluation Date of Service: 10/02/22 Vital Signs: Vital Signs Temp Pulse Resp BP Pulse Ox O2 Del Method 10/02/22 07:09 97.3 F 68 16 118/64 97 Room Air 10/02/22 06:45 Room Air 10/02/22 03:21 96.8 F 78 16 111/57 L 95 Room Air Anesthesia: General Endotracheal-GETA Mental Status: Awake Pain Control: Satisfactory Nausea/Vomiting: None Hydration: Adequate Anesthesia-Related Issues: No Anes. Related Issues
== END 2022-10-02 09:03 | disposition home or self-care (01) ==
LOC: HO.SSS 09:35 → HO.S3 10:37
PROVIDERS: Physician Assistant; Physician Assistant Surgical; PCP Nurse Practitioner Family; Visit Provider Surgery
PROC: (CPT 43845; principal; 2022-10-01 07:30)
DX: E66.01 Morbid (severe) obesity due to excess calories (principal); Z68.41 Body mass index [BMI] 40.0-44.9, adult; K66.0 Peritoneal adhesions (postprocedural) (postinfection); K21.9 Gastro-esophageal reflux disease without esophagitis; K76.0 Fatty (change of) liver, not elsewhere classified; E50.9 Vitamin A deficiency, unspecified; E55.9 Vitamin D deficiency, unspecified; E51.9 Thiamine deficiency, unspecified; F41.1 Generalized anxiety disorder; Z79.899 Other long term (current) drug therapy; Z20.822 Contact with and (suspected) exposure to COVID-19
CPT/HCPCS: 43775; 43659; 36415; 80048; 85014; 85018; 85025; 86850; 86900; 86901; 87635; 88304; 88305; 88307; 88342; A4649; C9088; C9145; J0131; J0690; J1100; J1170; J2250; J2370; J2795; J3010

== ENCOUNTER → 2022-10-07 09:40 | Outpatient (BNVA) | payer OTHER, SELFPAY | PROVIDERS: PCP Nurse Practitioner Family; Visit Provider Physician Assistant Surgical ==

== ENCOUNTER 2024-12-03 20:17 | Inpatient (IN) | payer OTHER, SELFPAY ==
--- NOTE | ~2024-12-03 | XR_ITS ---
CLINICAL HISTORY: Syncope CHEST X-RAY FRONTAL VIEW COMPARISON: None provided. FINDINGS: A single frontal view of the chest was performed. Patient is mildly rotated to the right. Cardiomegaly is suspected. No focal infiltrate or consolidation. No pleural effusion or pneumothorax. IMPRESSION: 1. No acute disease. 2. Cardiomegaly is suspected. This document has been electronically signed by: Odell Ochoa M.D. on 12/03/2024 23:35:50
[2024-12-03 20:22] VITALS: BP 93/51; PULSE 47; RESP 20; TEMP 36.5; O2SAT 98; BMI 36.8
--- NOTE | 2024-12-03 20:23 | ECG_ITS ---
Test Reason : SYNCOPE Blood Pressure : */* mmHG Vent. Rate : 44 BPM Atrial Rate : 44 BPM P-R Int : 170 ms QRS Dur : 74 ms QT Int : 460 ms P-R-T Axes : 18 9 11 degrees QTcB Int : 393 ms Marked sinus bradycardia Abnormal ECG When compared with ECG of 18-Oct-2021 13:13, No significant change was found Referred By: Karen Miller Electronically Signed By: PINKY RAMOS
--- NOTE | 2024-12-03 20:25 | ED.DIZZY ---
HPI - Dizziness General Chief Complaint: Syncope Stated Complaint: dizzy/light headed/pass out recently today Time Seen by Provider: 12/03/24 21:10 Source: patient Mode of arrival: ambulatory Limitations: no limitations History of Present Illness ED Provider: Dr. Lashell Macias HPI Narrative: Patient comes to the emergency room reporting a syncopal episode. According to the patient, today she was standing and talking with family/friends. Patient had already been standing for a while when she had a sudden onset of a syncopal episode. Patient states that she did not have any chest pain or shortness of breath. Her friends/family were able to catch her and sitter in a chair. Did not sustain any injuries. Patient reports that this is the 4th time in 1 year that she has had sudden syncope. Patient states that she has not been seen by Cardiology yet but her PCP has ordered multiple tests, including an echocardiogram which is pending. On arrival, it was noted that patient's blood pressure was a bit soft in the 90s and heart rate in the 40s. Eventually, patient's blood pressure improved but her heart rate remains between the mid 40s and mid 50s. Patient denies chest pain or shortness of breath. Patient states that she does feel a bit lightheaded especially if she gets up. Patient denies taking any blood pressure medications/beta blockers Related Data Home Medications ?Medication ?Instructions ?Recorded ?Confirmed omeprazole 20 mg capsule,delayed 20 mg PO DAILY PRN Acid Reflux 09/24/22 10/07/22 release Previous Rx's ?Medication ?Instructions ?Recorded ondansetron 4 mg disintegrating 4 mg PO Q12H nausea and vomiting 09/23/22 tablet #20 tabs sucralfate 100 mg/mL oral 10 ml PO BID #400 mL 09/23/22 suspension Allergies Allergy/AdvReac Type Severity Reaction Status Date / Time No Known Allergies (No Known Allergy Verified 12/03/24 20:23 Allergies*) Review of Systems Review of Systems: Constitutional : No Weight loss, No Fever, No Chills, No Night Sweats, No Fatigue, No Malaise ENT/Mouth : No Hearing loss, No Ear Pain, No Nasal Congestion, No Sinus Pain, No Hoarseness, No sore throat, No Rhinorrhea, No Swallowing Difficulty Eyes: No Eye Pain, No Swelling, No Redness, No Foreign Body, No Discharge, No Vision Changes Cardiovascular : No Chest Pain, No SOB, No Dyspnea on Exertion, No Orthopnea, No Edema, No Palpitations, complaining of sudden syncopal episode while standing Respiratory : No Cough, No Sputum, No Wheezing, No Smoke Exposure, No Dyspnea Gastrointestinal : No Nausea, No Vomiting, No Diarrhea, No Constipation, No abdominal Pain, No Hematochezia, No Melena Genitourinary : no irregular bleeding, No Dysuria, No Urinary Frequency, No Hematuria, No Urinary Incontinence, No Urgency, No Flank Pain, No Urinary Flow Changes, No Hesitancy Musculoskeletal : No joint pain, No Myalgias, No Joint Swelling Skin : No Skin Lesions, No rash Neuro : No Weakness, No Numbness, No Paresthesias, an episode of loss of consciousness, a bit lightheaded, no headache Psych : No Anxiety/Panic, No Depression, No SI/HI/AH/VH, No Social Issues, Heme/Lymph: No Bruising, No Bleeding,No Lymphadenopathy Endocrine : No Polyuria, No Polydipsia, No Temperature Intolerance [facility] Past Medical History Medical History (Updated 12/03/24 @ 21:48 by Lashell Macias MD) Adjustment disorder Obesity Anxiety Reflux gastritis Surgical History Delivery by section Hx of tonsillectomy Family History Family History Mother Diabetes Father Diabetes Heart problem Sister Obesity Insomnia Brother Diabetes Brother No problems noted. Brother No problems noted. Brother No problems noted. Son No problems noted. Son No problems noted. Son No problems noted. Son No problems noted. Social History Social History Household Members: Spouse Housing: House Are you a primary care program director to a significant other at home: No Do you presently have visiting nurse or other home services: No Alcohol intake: current Alcohol intake frequency: holidays/special occasions only Patient Tobacco Use Status: Never used Tobacco Smoked in Last 30 Days: No Use of substances other than those prescribed or required for medical reasons: Yes Substance Use Type: Marijuana Advance Directives: No Advance Directives Information Provided: No Patient : No Physical Exam Exam: Exam: Appearance: Alert. Oriented X3. No acute distress. Eyes: Pupils equal, round and reactive to light. ENT: Pharynx normal. Neck: Normal inspection. Neck supple. No lymph nodes noted. No crepitus CVS: Sinus rhythm, heart rate in the low 50s, Pulses normal. Normal S1 and S2 Respiratory: No respiratory distress. Breath sounds normal. No Wheezing. No rales Abdomen: Soft and nontender. No rigidity. No distention. Skin: Skin warm and dry. Normal skin color. Normal skin turgor. Extremities: No lower extremity edema. No Lacerations. No Rash Neuro: Oriented X 3. No motor deficit. No sensory deficit. Moving all extremities. No slurred speech. CN 2 through 12 grossly intact Psych: calm, cooperative, a bit tearful, states that before her 1st syncopal episode, she went through divorce and several family members Vital Signs: Vital Signs: Last Vital Signs Temp 97.7 F 12/03/24 20:22 Pulse 48 L 12/03/24 21:01 Resp 18 12/03/24 20:44 BP 117/64 12/03/24 20:49 Pulse Ox 99 12/03/24 20:44 O2 Del Method Room Air 12/03/24 20:44 BMI result Body Mass Index 36.8 Course Course Course Narrative: This is a Rapid Medical Examination (RME) performed by Doug Miller PA-C in triage. Full HPI, ROS, assessment and treatment plan per primary provider in the Main ED. Hx: 54 yo F here for eval s/p syncopal event that occurred [place] [employer]ANGLER while talking with others. denies head strike. states that has happened 4 other times, is currently awaiting echo appointment in december. reports feeling dizzy prior to fainting. no chest pain. PE/vitals: bradycardic to 40's discharge coordinator aware - pt to be brought back to room. Plan: labs, ekg Medical Decision Making Medical Decision Making MDM Narrative: My interpretation of EKG: Marked sinus bradycardia, heart rate 54, no ST segment depression or elevation, no T-wave inversion, QTC 393 Patient's blood pressure is 117/64. Patient states that if she moves too fast or if she sits up she feels lightheaded/dizzy. No chest pain or shortness of breath We tried to do orthostatic vitals, however, patient is feeling dizzy at rest , sitting without any movement Interpretation of labs: No significant abnormality in patient's hematology, not anemic, no chemistry abnormality, LFTs and troponin normal This is the 4th syncopal episode the patient has had in 1 year, does not seem to be related to medications I discussed the above-mentioned with Dr. Roth from the Medicine team, patient being admitted Differential Diagnosis Differential Diagnoses: The differential diagnosis associated with the presentation includes (Sinus bradycardia, heart block, depression, takotsubo) Admission/Observation Consideration of admission/observation: Escalation of care including admission/observation considered Consult Healthcare Provider Management of the patient was discussed with: Hospitalist Lab Data MDM Lab Attestation statement: I reviewed the patient's lab results. 12/03/24 20:34 12/03/24 20:34 Labs: Lab Results 12/03/24 12/03/24 Range/Units 20:34 20:43 WBC 6.5 (4.8-10.8) X10*3/uL RBC 3.70 L (4.20-5.50) X10*6/uL Hgb 12.4 (12.0-16.0) g/dl Hct 35.8 L (37.0-47.0) % MCV 96.8 (80.0-98.0) fL MCH 33.5 H (27.0-33.0) pg MCHC 34.6 (31.0-35.0) g/dl RDW 11.7 (11.0-16.0) % Plt Count 182 (160-400) X10*3/uL MPV 10.8 (9.4-12.3) fL Immature Gran % (Auto) 0.5 H (0.0-0.4) % Neut % (Auto) 65.5 (45-73) % Lymph % (Auto) 22.8 (20-40) % Colbert % (Auto) 7.8 (2-11) % Eos % (Auto) 2.9 (0-4) % Baso % (Auto) 0.5 (0-2) % Lymph # (Auto) 1.5 (1.2-4.9) X10*3/uL Colbert # (Auto) 0.5 (0.1-1.2) X10*3/uL Eos # (Auto) 0.2 (0.0-0.4) X10*3/uL Baso # (Auto) 0.0 (0.0-0.2) X10*3/uL Abs Immat Gran (auto) 0.03 (0.00-0.03) X10*3/uL Absolute Neuts (auto) 4.3 (2.0-8.3) x10*3/uL Absolute Nucleated RBC 0.000 (0.0-0.012) X10*3/uL Nucleated RBC % (auto) 0.0 (0.0-0.2) /100WBC Hold Blue Top SEE NOTE Sodium 143 (135-145) mmol/L Potassium 3.9 (3.3-5.1) mmol/L Chloride 109 H (96-108) mmol/L Carbon Dioxide 25 (22-29) mmol/L Anion Gap 13 (12-20) BUN 12 (9-16) mg/dL Creatinine 1.07 (0.5-1.4) mg/dL Estim Creat Clear Calc 60.0 Estimated GFR 53 POC Glucose 114 (60-115) mg/dL Random Glucose 130 H (60-115) mg/dL Calcium 9.2 (8.4-10.2) mg/dL Magnesium 2.1 (1.6-2.6) mg/dL Total Bilirubin 0.6 (0.0-1.0) mg/dL AST 19 (5-31) U/L ALT 9 (0-31) U/L Alkaline Phosphatase 87 (39-117) U/L Troponin I High Sens 5.4 (<3.5-17.0) ng/L Total Protein 7.5 (6.5-8.0) g/dL Albumin 4.3 (3.5-5.0) g/dL Independent Interpretation I performed an independent interpretation of an: EKG Critical Care Time Critical Care Time Critical Care Time: Yes Total Critical Care Time: 60 Attestation: I have personally provided critical care time. Time includes review of lab data, radiology results, discussion with consultants, and monitoring for potential decompensation. Intervention performed as documented. Discharge Plan Discharge Clinical Impression: Bradycardia, Syncope Patient Disposition: Admitted As Inpatient
[2024-12-03 20:41] LABS: Hematocrit 35.8 % (37.0-47.0); Hemoglobin 12.4 g/dl (12.0-16.0); Imm Gran Abs Auto 0.03 X10*3/uL (0.00-0.03); Imm Gran Pct Auto 0.5 % (0.0-0.4); Lymphocytes Absolute Auto 1.5 X10*3/uL (1.2-4.9); MANUAL DIFF FLAG NO; Mean Corpuscular HGB Conc 34.6 g/dl (31.0-35.0); Mean Corpuscular Hemoglobin 33.5 pg (27.0-33.0); Mean Corpuscular Volume 96.8 fL (80.0-98.0); NRBC Abs Auto 0.000 X10*3/uL (0.0-0.012); NRBC Pct Auto 0.0 /100WBC (0.0-0.2); Platelet Count 182 X10*3/uL (160-400); Red Blood Count 3.70 X10*6/uL (4.20-5.50); White Blood Count 6.5 X10*3/uL (4.8-10.8)
[2024-12-03 20:44] VITALS: BP 119/97; PULSE 47; RESP 18; O2SAT 99
[2024-12-03 20:47] LABS: Glucose, Whole Blood 114 mg/dL (60-115)
[2024-12-03 20:49] VITALS: BP 117/64; PULSE 48
[2024-12-03 20:56] LABS: Alanine Aminotransferase 9 U/L (0-31); Albumin Level 4.3 g/dL (3.5-5.0); Alkaline Phosphatase 87 U/L (39-117); Anion Gap 13 (12-20); Aspartate Amino Transferase 19 U/L (5-31); Blood Urea Nitrogen 12 mg/dL (9-16); Calcium 9.2 mg/dL (8.4-10.2); Carbon Dioxide 25 mmol/L (22-29); Chloride 109 mmol/L (96-108); Creatinine Clr Calc Pharmacy 60.0; Estimated Glomerular Filt Rate 53; Magnesium 2.1 mg/dL (1.6-2.6); Potassium 3.9 mmol/L (3.3-5.1); Sodium 143 mmol/L (135-145); Total Protein 7.5 g/dL (6.5-8.0)
[2024-12-03 21:01] VITALS: PULSE 48
[2024-12-03 21:04] LABS: Troponin-I High Sensitivity 5.4 ng/L (<3.5-17.0)
--- NOTE | 2024-12-03 22:04 | P.HPHOSP_ITS ---
History of Present Illness Date of Service: 12/03/24 Attending physician on admission: Imani Tariq Chief Complaint: Loss of consciousness Harriett Roth is a 54 years old woman with past medical history significant for multiple events of syncope (X3) presents to the emergency department after having an episode of loss of consciousness while she was standing up. Her boyfriend was with her previous happened. She denied any trauma upon falling down. She mentioned that she felt dizzy before losing consciousness. She is still feeling dizzy and has some shortness of breath. She was smoking marijuana before losing consciousness. She denied any associated headache, acute visual disturbances, focal weakness, seizure activity, nausea, vomiting, palpitations or diaphoresis. She denied any acute gastrointestinal or genitourinary symptoms. She mentioned that she have had workup for syncope in the past and came back negative (including echocardiogram). She does not take beta-blockers, calcium channel blockers or antiarrhythmics In the ED, she was found to have marked tachycardia, 40s. Her blood pressure was initially soft 93/51. Last BP was 117/64. Temperature an O2 sats are normal. Blood workup showed no leukocytosis. Hemoglobin is 12.4 and platelets 182. There are no significant electrolyte imbalances. Creatinine is 1.07 and BUN 12. Glucose is 114. LFTs are normal. Troponin is 5.4. ECG showed marked sinus bradycardia, heart rate 44 beats per minute and no acute ischemic changes. ED tx: None. Review of Systems 2 Review of Systems: All 12 systems were reviewed and normal except as noted in HPI. [facility]LY [facility], LATER [facility] Medical History (Updated 12/03/24 @ 22:27 by Imani Tariq MD) Adjustment disorder Obesity Anxiety Reflux gastritis Family History Mother Diabetes Father Diabetes Heart problem Sister Obesity Insomnia Brother Diabetes Brother No problems noted. Brother No problems noted. Brother No problems noted. Son No problems noted. Son No problems noted. Son No problems noted. Son No problems noted. Surgical History Delivery by section Hx of tonsillectomy Social History Household Members: Spouse Housing: House Are you a primary cardiac care unit nurse to a significant other at home: No Do you presently have visiting nurse or other home services: No Alcohol intake: current Alcohol intake frequency: holidays/special occasions only Patient Tobacco Use Status: Never used Tobacco Smoked in Last 30 Days: No Use of substances other than those prescribed or required for medical reasons: Yes Substance Use Type: Marijuana Advance Directives: No Advance Directives Information Provided: No Patient : No Meds Allergies Allergy/AdvReac Type Severity Reaction Status Date / Time No Known Allergies (No Known Allergy Verified 12/03/24 20:23 Allergies*) Active Medications: Current Medications Acetaminophen (Acetaminophen 325 Mg Tablet) 975 mg PO Q6H PRN PRN Reason: Pain, Mild 1-3,fever,headache Calcium Carbonate (Calcium Carbonate 750 Mg Tab.Chew) 750 mg PO Q4H PRN PRN Reason: Heartburn Enoxaparin Sodium (Enoxaparin Sodium 40 Mg/0.4 Ml Syringe) 40 mg SUBCUT Q24H [facility] Magnesium Hydroxide (Milk Of Magnesia 30 Ml Oral.Susp) 30 ml PO DAILY PRN PRN Reason: Constipation Melatonin (Melatonin 3 Mg Tablet) 6 mg PO BEDTIME PRN PRN Reason: Insomnia Sodium Chloride (0.9 % Sodium Chloride Flush 3 Ml Syringe) 3 ml IVFLUSH QSHIFT [facility] Home Medications ?Medication ?Instructions ?Recorded ?Confirmed ?Last Taken ?Type omeprazole 20 mg capsule,delayed 20 mg PO DAILY PRN Ac id Reflux 09/24/22 10/07/22 Unknown History release Physical Exam 2 Vital Signs and Narrative: Vital Signs: Last Vital Signs Temp 97.7 F 12/03/24 20:22 Pulse 48 L 12/03/24 21:01 Resp 18 12/03/24 20:44 BP 117/64 12/03/24 20:49 Pulse Ox 99 12/03/24 20:44 O2 Del Method Room Air 12/03/24 20:44 BMI result Body Mass Index 36.8 Constitutional - Awake and Alert, No apparent distress HEENT - PER, EOMI Heart - bradycardic, normal rhythm, no murmurs. Lungs - Normal lung expansion, Normal respiratory effort, No respiratory distress, CTA bilaterally Abdomen - NT / ND; +BS; No rebound or guarding Extremities - no calf tenderness bilaterally, no swelling Musculoskeletal - Normal inspection, normal ROM Skin - Warm/Dry Neurological - Alert & oriented x3. Moving all extremities spontaneously. Normal speech. Psychological - Appropriate affect Results Labs 12/03/24 20:34 12/03/24 20:34 Labs: Laboratory Results - last 24 hr 12/03/24 12/03/24 20:34 20:43 MCV 96.8 MCH 33.5 H MCHC 34.6 RDW 11.7 Plt Count 182 MPV 10.8 Immature Gran % (Auto) 0.5 H Neut % (Auto) 65.5 Lymph % (Auto) 22.8 [place] % (Auto) 7.8 Eos % (Auto) 2.9 Baso % (Auto) 0.5 Lymph # (Auto) 1.5 [place] # (Auto) 0.5 Eos # (Auto) 0.2 Baso # (Auto) 0.0 Abs Immat Gran (auto) 0.03 Absolute Neuts (auto) 4.3 Absolute Nucleated RBC 0.000 Nucleated RBC % (auto) 0.0 Hold Blue Top SEE NOTE Anion Gap 13 Estim Creat Clear Calc 60.0 Estimated GFR 53 POC Glucose 114 Random Glucose 130 H Calcium 9.2 Magnesium 2.1 Total Bilirubin 0.6 AST 19 ALT 9 Alkaline Phosphatase 87 Total Protein 7.5 Albumin 4.3 Assessment and Plan (1) Bradycardia: Status: Acute (2) Syncope: Qualifiers: Syncope type: unspecified Qualified Code(s): R55 - Syncope and collapse Status: Acute Plan Harriett Roth is a 54 y/o woman admitted with: Syncope associated with bradycardia; cardiac?. Telemetry. Monitor VS closely. Check Orthostatic VS. Recheck troponin. Check TSH and urine drug screen. Obtain TTE. Cardiology consult. Anxiety. Continue citalopram. Obesity, class 1. BMI 36.8 kg/m2. Hx of bariatric surgery. Code status: Full DVT prophylaxis: Lovenox Patient will need hospitalization for at least 2 midnights for syncope and bradycardia management evaluation; she will need continuous cardiac monitoring and evaluation by subspecialty. Quality Stroke Does the patient have a stroke diagnosis?: No VTE Prior VTE?: No VTE Risk Level:: Medical - moderate - high VTE Device Contraindication: Treatment Not Indicated VTE Drug Contraindication: N/A - Med Ordered
[2024-12-03 22:16] LABS: Thyroid Stimulating Hormone 1.88 uIU/mL (0.32-4.0)
[2024-12-04] VITALS (13 sets, daily range): BP systolic 100–145; BP diastolic 47–68; PULSE 47–63; RESP 13–18; TEMP 36.2–36.6; O2SAT 95–100; BMI 37.3
[2024-12-04 01:57] LABS: Troponin-I High Sensitivity < 2.7 ng/L (<3.5-17.0)
[2024-12-04 05:01] LABS: MANUAL DIFF FLAG NO
[2024-12-04 05:05] LABS: Hematocrit 33.9 % (37.0-47.0); Hemoglobin 11.2 g/dl (12.0-16.0); Imm Gran Abs Auto 0.02 X10*3/uL (0.00-0.03); Imm Gran Pct Auto 0.3 % (0.0-0.4); Lymphocytes Absolute Auto 1.0 X10*3/uL (1.2-4.9); Mean Corpuscular HGB Conc 33.0 g/dl (31.0-35.0); Mean Corpuscular Hemoglobin 32.8 pg (27.0-33.0); Mean Corpuscular Volume 99.4 fL (80.0-98.0); NRBC Abs Auto 0.000 X10*3/uL (0.0-0.012); NRBC Pct Auto 0.0 /100WBC (0.0-0.2); Platelet Count 178 X10*3/uL (160-400); Red Blood Count 3.41 X10*6/uL (4.20-5.50); White Blood Count 6.0 X10*3/uL (4.8-10.8)
[2024-12-04 05:26] LABS: Anion Gap 11 (12-20); Blood Urea Nitrogen 14 mg/dL (9-16); Calcium 9.0 mg/dL (8.4-10.2); Carbon Dioxide 26 mmol/L (22-29); Chloride 110 mmol/L (96-108); Creatinine Clr Calc Pharmacy 65.5; Estimated Glomerular Filt Rate 59; Magnesium 2.2 mg/dL (1.6-2.6); Potassium 3.6 mmol/L (3.3-5.1); Sodium 143 mmol/L (135-145)
--- NOTE | 2024-12-04 07:16 | PC.NURSE ---
Assumed care of patient. Pt is A+OX4, calm, cooperative. Pt c/o some ligh headedness, ongoing, but denies any pain or other complaints. RR even and unlabroed, denies CP or SOB. HR and BP continue to run on the lower side since arrival.
[2024-12-04 08:02] LABS: Glucose, Whole Blood 98 mg/dL (60-115)
[2024-12-04] MEDS: 0.9 % Sodium Chloride Flush 3 ML SYRINGE IVFLUSH ×3 (09:47→21:50)
--- NOTE | 2024-12-04 10:26 | PM.CNCAR ---
History of Present Illness History of Present Illness Date of Service: 12/04/24 Chief complaint: syncope, bradycardia Narrative: This is a cardiology consultation regarding syncope. Patient does not have any known cardiovascular issues including coronary disease or myocardial infarction or cardiomyopathy or in fact anything else. She states that she underwent weight loss surgery in the past and has lost about 60 lb or so according to her. Current admissions because of syncopal episode. Apparently, she has had about 3-4 episodes of the same over the last several months. In the current episode, there is mentioned marijuana use just before the episode. She apparently felt dizzy and then lost consciousness. Her boyfriend was with her when this happened. She denies any other complaints like angina or shortness of breath or palpitations or anything else. Previous episodes are also somewhat similar but she is somewhat does not believe that marijuana has got anything do this. She states they are independent. Per notes, heart rate was in the 40s when she came in. Blood pressure was 93/51 mm Hg. Currently, she states she is better. However, does not feel completely normal. Review of Systems Review of Systems: Yes all other systems are reviewed and are negative Constitutional: Constitutional: Reports as per HPI and Reports no additional constitutional complaints Eyes: Eyes: Reports as per HPI and Denies no additional eye complaints ENT: Denies system reviewed and no additional complaints, except as documented and Reports as per HPI Cardiovascular: Cardiovascular: Reports as per HPI, Reports no additional cardiovascular complaints, Denies acrocyanosis, Denies cool extremities, Denies chest pain, Denies leg edema, Denies lightheadedness, Denies palpitations and Denies dyspnea Respiratory: Respiratory: Reports as per HPI, Denies no additional respiratory complaints and Denies dyspnea Gastrointestinal: Gastrointestinal: Reports as per HPI and Denies no additional gastrointestinal complaints Genitourinary: Genitourinary: Reports as per HPI Musculoskeletal: Musculoskeletal: Reports no additional musculoskeletal complaints and Reports as per HPI Integumentary/Breasts: Skin/Breast: Reports system reviewed and no additional complaints, except as docu Neurologic: Reports system reviewed and no additional complaints, except as documented and Reports as per HPI Psychiatric: Psychiatric: Reports no additional psychiatric complaints and Reports as per HPI Endocrine: Endocrine: Reports no additional endocrine complaints, Reports as per HPI and Denies palpitations Hematologic/Lymphatic: Hematologic/Lymphatic: Reports no additional hematologic/lymphatic complaints and Reports as per HPI Allergic/Immunologic: Allergic/Immunologic: Reports no additional allergic/immunologic complaints and Reports as per HPI FORMERLY [facility] Past Medical History Medical History (Updated 12/03/24 @ 22:27 by Imani Tariq MD) Adjustment disorder Obesity Anxiety Reflux gastritis Family History Family History Mother Diabetes Father Diabetes Heart problem Sister Obesity Insomnia Brother Diabetes Brother No problems noted. Brother No problems noted. Brother No problems noted. Son No problems noted. Son No problems noted. Son No problems noted. Son No problems noted. Surgical History Surgical History Delivery by section Hx of tonsillectomy Social History Social History Household Members: Family Household Members Other:: Mother and Father Housing: House Are you a primary care assistant to a significant other at home: No Do you presently have visiting nurse or other home services: No Alcohol intake: current Alcohol intake frequency: holidays/special occasions only Patient Tobacco Use Status: Never used Tobacco Second Hand Smoke Exposure: No Substance Use Type: Marijuana Meds Allergies Allergy/AdvReac Type Severity Reaction Status Date / Time No Known Allergies (No Known Allergy Verified 12/03/24 20:23 Allergies*) Active Medications: Current Medications Acetaminophen (Acetaminophen 325 Mg Tablet) 975 mg PO Q6H PRN PRN Reason: Pain, Mild 1-3,fever,headache Calcium Carbonate (Calcium Carbonate 750 Mg Tab.Chew) 750 mg PO Q4H PRN PRN Reason: Heartburn Enoxaparin Sodium (Enoxaparin Sodium 40 Mg/0.4 Ml Syringe) 40 mg SUBCUT Q24H [facility] Last Admin: 12/04/24 09:48 Dose: 40 mg Magnesium Hydroxide (Milk Of Magnesia 30 Ml Oral.Susp) 30 ml PO DAILY PRN PRN Reason: Constipation Melatonin (Melatonin 3 Mg Tablet) 6 mg PO BEDTIME PRN PRN Reason: Insomnia Sodium Chloride (0.9 % Sodium Chloride Flush 3 Ml Syringe) 3 ml IVFLUSH QSHIFT [facility] Last Admin: 12/04/24 09:47 Dose: 3 ml Home Medications ?Medication ?Instructions ?Recorded ?Confirmed ?Last Taken ?Type escitalopram oxalate 10 mg tablet 10 mg PO DAILY 12/04/24 12/04/24 Unknown History lorazepam 0.5 mg tablet 0.5 mg PO BID PRN Panic Attack(S) 12/04/24 12/04/24 Unknown History Physical Exam Vital Signs: Vital Signs: Last Vital Signs Temp 97.4 F 12/04/24 09:03 Pulse 51 12/04/24 09:56 Resp 18 12/04/24 09:56 BP 130/64 12/04/24 09:56 Pulse Ox 98 12/04/24 09:55 O2 Del Method Room Air 12/04/24 09:03 BMI result Body Mass Index 37.3 Const: General: comfortable and no acute distress Orientation/consciousness: patient oriented x3 HEENT: Other: Unremarkable Head: Yes normal to inspection Neck: Neck: Yes normal visual inspection Chest: Chest palpation & inspection: normal inspection of the chest Resp: Auscultation: clear to auscultation bilaterally Cardio: Palpation: normal PMI Heart sounds: S1 normal heart sound present, S2 normal heart sound present, no gallops, no murmurs and no rubs GI: Palpation (GI): Soft to palpation Back/Spine/Pelvis: Other: unremarkable Skin: General skin exam: no rashes or lesions noted Neuro: General: patient oriented x3 Extrem: General: Yes normal to inspection Psych: Mental Status: mental status grossly normal Objective Labs and Meds 12/04/24 04:55 12/04/24 04:55 Lab results: Laboratory Results - last 24 hr 12/03/24 12/03/24 12/04/24 20:34 20:43 01:29 WBC 6.5 RBC 3.70 L Hgb 12.4 Hct 35.8 L MCV 96.8 MCH 33.5 H MCHC 34.6 RDW 11.7 Plt Count 182 MPV 10.8 Immature Gran % (Auto) 0.5 H Neut % (Auto) 65.5 Lymph % (Auto) 22.8 [place] % (Auto) 7.8 Eos % (Auto) 2.9 Baso % (Auto) 0.5 Lymph # (Auto) 1.5 [place] # (Auto) 0.5 Eos # (Auto) 0.2 Baso # (Auto) 0.0 Abs Immat Gran (auto) 0.03 Absolute Neuts (auto) 4.3 Absolute Nucleated RBC 0.000 Nucleated RBC % (auto) 0.0 Hold Blue Top SEE NOTE Sodium 143 Potassium 3.9 Chloride 109 H Carbon Dioxide 25 Anion Gap 13 BUN 12 Creatinine 1.07 Estim Creat Clear Calc 60.0 Estimated GFR 53 POC Glucose 114 Random Glucose 130 H Calcium 9.2 Magnesium 2.1 Total Bilirubin 0.6 AST 19 ALT 9 Alkaline Phosphatase 87 Troponin I High Sens 5.4 < 2.7 D Total Protein 7.5 Albumin 4.3 TSH 1.88 12/04/24 12/04/24 04:55 07:59 WBC 6.0 RBC 3.41 L Hgb 11.2 L Hct 33.9 L MCV 99.4 H MCH 32.8 MCHC 33.0 RDW 11.9 Plt Count 178 MPV 10.6 Immature Gran % (Auto) 0.3 Neut % (Auto) 71.7 Lymph % (Auto) 17.3 L [place] % (Auto) 8.9 Eos % (Auto) 1.5 Baso % (Auto) 0.3 Lymph # (Auto) 1.0 L [place] # (Auto) 0.5 Eos # (Auto) 0.1 Baso # (Auto) 0.0 Abs Immat Gran (auto) 0.02 Absolute Neuts (auto) 4.3 Absolute Nucleated RBC 0.000 Nucleated RBC % (auto) 0.0 Hold Blue Top Sodium 143 Potassium 3.6 Chloride 110 H Carbon Dioxide 26 Anion Gap 11 L BUN 14 Creatinine 0.98 Estim Creat Clear Calc 65.5 Estimated GFR 59 POC Glucose 98 Random Glucose 77 Calcium 9.0 Magnesium 2.2 Total Bilirubin AST ALT Alkaline Phosphatase Troponin I High Sens Total Protein Albumin TSH ECG Interpretation: EKG with sinus bradycardia at 44/Min. No ischemic changes. Normal [place]/corrected QT. artifact in the lateral leads. In the previous EKG, rate was 61/Min. On telemetry, rate is in the 50s. Assessment and Plan (1) Syncope: Qualifiers: Syncope type: unspecified Qualified Code(s): R55 - Syncope and collapse Status: Acute (2) Bradycardia: Status: Acute Plan Initial blood pressure upon arrival was 93/51 mm Hg. Heart rate in the 40s. Not clear if it is a vasovagal episode. Less likely related to the bradycardia itself as she is still feels somewhat dizzy but heart rate is in the 50s. Overall, possible borderline blood pressures related to weight loss and that could cause orthostatic symptoms. This instance, advised to be to keep her hydrated and also liberalize salt intake. With regard to the bradycardia, unlikely it is causing syncope but we will need telemetry monitoring and possibly an outpatient Holter. May also need an ETT for assessing chronotropic competence. Echocardiogram tomorrow. We will follow up with you. Procedures Date of Service Date of Service: 12/04/24
--- NOTE | 2024-12-04 10:37 | PHA.MEDREC ---
Pharmacy Consult ? Medication Reconciliation Pharmacy has completed the medication reconciliation. Med rec confirmed with patient via nurse [place]. Patient states ativan PRN panic attacks, and that she never takes her doxepin but it is for bedtime, left off list
--- NOTE | 2024-12-04 10:38 | MHC.CM.PN ---
CM met with Patient at bedside. Patient is staying at her Parents home @ [address], in [facility] and returning home, self care, is her goal. CM has initiated and will follow for dc planning. PCP is Dr. Hawa Jenkins; HCP is Son/Kael. Patient's Parents or her Boyfriend will transport at time of dc.
--- NOTE | 2024-12-04 13:54 | HO.PM.IMPN ---
Subjective Subjective Date of Service: 12/04/24 Interval History: No acute issues overnight. Still complains of dizziness even when lying in bed Review of Systems Denies chest pain Denies shortness of breath Denies nausea vomiting diarrhea Denies fever chills Physical Exam Vital Signs: Vital Signs: Last Vital Signs Temp 97.3 F 12/04/24 11:15 Pulse 48 L 12/04/24 11:15 Resp 17 12/04/24 11:15 BP 114/58 L 12/04/24 11:15 Pulse Ox 99 12/04/24 11:15 O2 Del Method Room Air 12/04/24 11:15 BMI result Body Mass Index 37.3 Const: Other: Awake alert no acute distress Resp: Other: Clear to auscultation bilaterally no rales rhonchi or wheezes Cardio: Other: No S4; positive S1-S2; no S3 murmurs rubs or gallops GI: Other: Soft nontender nondistended normoactive bowel sounds Neuro: Other: Cranial nerves 2-12 grossly intact as tested. Motor is 5/5 all extremities. Sensation is intact. Cognition appropriate Extrem: Other: No edema bilaterally Objective Data Active Medications Acetaminophen (Acetaminophen 325 Mg Tablet) 975 mg PO Q6H PRN PRN Reason: Pain, Mild 1-3,fever,headache Calcium Carbonate (Calcium Carbonate 750 Mg Tab.Chew) 750 mg PO Q4H PRN PRN Reason: Heartburn Enoxaparin Sodium (Enoxaparin Sodium 40 Mg/0.4 Ml Syringe) 40 mg SUBCUT Q24H [facility] Last Admin: 12/04/24 09:48 Dose: 40 mg Documented By: GENO Escitalopram Oxalate (Escitalopram Oxalate 10 Mg Tablet) 10 mg PO DAILY [facility] Lorazepam (Lorazepam 0.5 Mg Tablet) 0.5 mg PO BID PRN PRN Reason: Panic Attack(S) Magnesium Hydroxide (Milk Of Magnesia 30 Ml Oral.Susp) 30 ml PO DAILY PRN PRN Reason: Constipation Melatonin (Melatonin 3 Mg Tablet) 6 mg PO BEDTIME PRN PRN Reason: Insomnia Sodium Chloride (0.9 % Sodium Chloride Flush 3 Ml Syringe) 3 ml IVFLUSH QSHIFT [facility] Last Admin: 12/04/24 09:47 Dose: 3 ml Documented By: GENO Labs 12/04/24 04:55 12/04/24 04:55 Labs: Laboratory Results - last 24 hr 12/03/24 12/03/24 12/04/24 20:34 20:43 04:55 MCV 96.8 99.4 H MCH 33.5 H 32.8 MCHC 34.6 33.0 RDW 11.7 11.9 Plt Count 182 178 MPV 10.8 10.6 Immature Gran % (Auto) 0.5 H 0.3 Neut % (Auto) 65.5 71.7 Lymph % (Auto) 22.8 17.3 L [place] % (Auto) 7.8 8.9 Eos % (Auto) 2.9 1.5 Baso % (Auto) 0.5 0.3 Lymph # (Auto) 1.5 1.0 L [place] # (Auto) 0.5 0.5 Eos # (Auto) 0.2 0.1 Baso # (Auto) 0.0 0.0 Abs Immat Gran (auto) 0.03 0.02 Absolute Neuts (auto) 4.3 4.3 Absolute Nucleated RBC 0.000 0.000 Nucleated RBC % (auto) 0.0 0.0 Hold Blue Top SEE NOTE Anion Gap 13 11 L Estim Creat Clear Calc 60.0 65.5 Estimated GFR 53 59 POC Glucose 114 Random Glucose 130 H 77 Calcium 9.2 9.0 Magnesium 2.1 2.2 Total Bilirubin 0.6 AST 19 ALT 9 Alkaline Phosphatase 87 Total Protein 7.5 Albumin 4.3 TSH 1.88 12/04/24 07:59 MCV MCH MCHC RDW Plt Count MPV Immature Gran % (Auto) Neut % (Auto) Lymph % (Auto) [place] % (Auto) Eos % (Auto) Baso % (Auto) Lymph # (Auto) [place] # (Auto) Eos # (Auto) Baso # (Auto) Abs Immat Gran (auto) Absolute Neuts (auto) Absolute Nucleated RBC Nucleated RBC % (auto) Hold Blue Top Anion Gap Estim Creat Clear Calc Estimated GFR POC Glucose 98 Random Glucose Calcium Magnesium Total Bilirubin AST ALT Alkaline Phosphatase Total Protein Albumin TSH Assessment and Plan (1) Bradycardia: Status: Acute (2) Syncope: Status: Acute Plan Harriett Roth is a 54 y/o woman admitted with persistent dizziness despite outpatient workup 1. Syncope in the backdrop of bradycardia -ongoing outpatient workup failed to demonstrate any acute causes -continue telemetry -appreciate Cardiology input -2D echo in a.m. 2. Anxiety -well controlled with outpatient therapies Full lovenox Quality Stroke Does the patient have a stroke diagnosis?: No VTE Prior VTE?: No VTE Risk Level:: Medical - moderate - high VTE Device Contraindication: Treatment Not Indicated VTE Drug Contraindication: N/A - Med Ordered
[2024-12-05] VITALS (13 sets, daily range): BP systolic 110–137; BP diastolic 57–85; PULSE 45–58; RESP 16–18; TEMP 36.2–36.8; O2SAT 95–100
--- NOTE | 2024-12-05 | EEG_ITS ---
Reason For EEG: Syncope Medications:acetaminophen, calcium, enoxaparin sodium, melatonin History:No medical history- pt was admitted for persistent dizziness followed by a syncopal episode- no incontinence, shaking, or biting of tongue noted with spell- pt was noted to be bradycardia [employer] Comments: Reason: Syncope Photic stimulation: completed Hyperventilation: performed good effort Behavioral state: pleasant, asymptomatic throughout study State of consciousness: awake Sedation: no Skull defect: no Duration of study: 00:28:42 Description: This is a 16 channel EEG with an EKG lead. Background EEG rhythm is about 10 hertz 5-20 microvolt posteriorly and lower amplitude fast anteriorly. Muscle artifacts are noted in anterior leads. Photic stimulation does not produce any significant driving. Hyperventilation with good effort did not produce any significant changes. Cardiac lead does not reveal any significant abnormality. No sharp wave spikes or paroxysmal tendency noted. Impression: Unremarkable EEG. [place]
--- NOTE | 2024-12-05 07:00 | CA_ITS ---
Transthoracic Echocardiogram Patient (Last, First, Middle): Harriett Roth, Gender: F Date of : 1970 Age: 54 Procedure Date: 12/05/2024 Procedure Type: Transthoracic [place] [facility] [place]: 154.94 cm Weight: 89.36 kg BSA: 1.88 m2 Heart Rate: bpm BP: 120 / 57 mmHg Carpenter Rough: HECTOR Referring MD: Imani Tariq MD Symptoms: syncope, bradycardia Study Quality: Adequate w Contrast ECG Rhythm: Sinus Conclusions: - The left ventricular systolic function is normal. The visually estimated ejection fraction is between 55-60%. - No obvious valvular pathology seen on this study. Findings Left Ventricle Normal left ventricular cavity size. There is normal left ventricular wall thickness. The left ventricular systolic function is normal. The visually estimated ejection fraction is between 55-60%. There is no evidence of regional wall motion abnormalities. Diastolic function is normal for age. Right Ventricle Normal right ventricular cavity size and systolic function. Atria The left atrium is mildly dilated. The right atrium is normal in size. Aortic Valve There is a normal trileaflet aortic valve. There is no aortic valve stenosis. There is no aortic valve regurgitation. Mitral Valve There is mild mitral annular calcification. There is trace mitral valve regurgitation. There is no mitral valve stenosis. Pulmonic Valve The pulmonic valve is likely normal. Tricuspid Valve There is mild tricuspid valve regurgitation. There is no evidence of pulmonary hypertension. Great Vessels The asc aorta and aortic arch are normal in size. Venous The inferior vena cava is normal in size and collapses greater than 50% with inspiration. Pericardium/Pleural There is no evidence of pericardial effusion. Prior Study Comparison No prior study available for comparison. Recommendations, Care & Conclusions No obvious valvular pathology seen on this study. Measurements 2D Linear Measurements IVSd: 0.70 0.6-0.9/0.6-1.0 cm LVIDd: 5.41 3.9-5.3/4.2-5.9 cm LVIDd Index: 2.88 2.4-3.2/2.2-3.1 cm/m2 LVIDs: 2.97 2.0-3.6 cm LVPWd: 0.71 0.7-1.1 cm Ao Root: 3.30 2.1-3.5 cm LA Diam: 4.30 2.7-3.8/3.0-4.0 cm LAIDs Index: 2.29 1.5-2.3 cm/m2 LV Mass: 165.37 67-162/88-224 g LV Mass Index: 87.97 43-95/49-115 g/m2 LVOT Diam: 2.00 3.0+(-)1.3 cm 2D Systolic Function EF 4C: 55.00 >55% EF 2C: 65.40 >55% EF BiP: 60.10 >55% Mitral Valve MV Pk E: 0.86 MV PK A: 0.65 MV Decel Time: 217.00 E/A: 1.30 E'Lateral: 10.60 E'Medial: 7.51 E/E' Med: 11.40 E/E' Lat: 8.10 PHT: 64.00 MVA PHT: 3.44 Decel [place]: 3.94 Aortic Valve AoV Pk Tim: 1.29 AoV Mn Tim: 0.93 AoV VTI: 0.33 AoV Pk Grad: 7.00 Aov Mn Grad: 4.00 PHILIPPE Cont.VTI: 2.51 LVOT LVOT Pk Tim: 1.09 LVOT Mn Tim: 0.75 LVOT VTI: 0.26 LVOT Pk Grad: 5.00 LVOT Mn Grad: 3.00 LVOT Diam: 2.00 LVOT Area: 3.14 Diastolic Function MV Pk E: 0.86 MV Pk A: 0.65 E/A: 1.30 E'Medial: 7.51 E/E' Med: 11.40 E' Laterial: 10.60 E/E' Lat: 8.10 Right Ventricle TAPSE (mm): 23.00 TVS' Tim: 15.00 Tricuspid Valve TR Pk Tim: 1.94 TR Pk Grad: 15.00 RA Press: 3.00 RVSP: 18.00 Great Vessels Aorta Ao Root-2D: 3.30 2.0-3.7 cm Ao Asc: 3.00 2.1-3.4 cm Ao Arch: 2.60 Pulmonary Veins Pulm Vein S/D 1.30 Pulmonary Valve PV Pk Tim: 0.77 Peak PV Grad: 2.00 Updated in Other Vendor System with Status of Final Nishant Mattson MD electronically signed on 12/05/2024 10:38:48 AM with status of Final
--- NOTE | 2024-12-05 10:10 | PM.PNCARD ---
Subjective Subjective Date of Service: 12/05/24 Interval history: She states that she is feeling fine now. No longer feeling dizzy. Review of Systems Review of Systems Yes all other systems are reviewed and are negative Constitutional: Reports as per HPI and Reports no additional constitutional complaints Eyes: Reports as per HPI and Denies no additional eye complaints Denies system reviewed and no additional complaints, except as documented and Reports as per HPI Cardiovascular: Reports as per HPI, Reports no additional cardiovascular complaints, Denies acrocyanosis, Denies cool extremities, Denies chest pain, Denies leg edema, Denies lightheadedness, Denies palpitations and Denies dyspnea Respiratory: Reports as per HPI, Denies no additional respiratory complaints and Denies dyspnea Gastrointestinal: Reports as per HPI and Denies no additional gastrointestinal complaints Genitourinary: Reports as per HPI Musculoskeletal: Reports no additional musculoskeletal complaints and Reports as per HPI Skin/Breast: Reports system reviewed and no additional complaints, except as docu Reports system reviewed and no additional complaints, except as documented and Reports as per HPI Psychiatric: Reports no additional psychiatric complaints and Reports as per HPI Endocrine: Reports no additional endocrine complaints, Reports as per HPI and Denies palpitations Hematologic/Lymphatic: Reports no additional hematologic/lymphatic complaints and Reports as per HPI Allergic/Immunologic: Reports no additional allergic/immunologic complaints and Reports as per HPI Physical Exam Vital Signs: Last Vital Signs Temp 97.9 F 12/05/24 07:50 Pulse 49 L 12/05/24 08:06 Resp 16 12/05/24 07:50 BP 131/66 12/05/24 08:06 Pulse Ox 98 12/05/24 07:50 O2 Del Method Room Air 12/05/24 07:50 BMI result Body Mass Index 37.3 Const General: comfortable and no acute distress Orientation/consciousness: patient oriented x3 HEENT Other: Unremarkable Head: Yes normal to inspection Neck Neck: Yes normal visual inspection Chest Chest palpation & inspection: normal inspection of the chest Resp Auscultation: clear to auscultation bilaterally Cardio Palpation: normal PMI Heart sounds: S1 normal heart sound present, S2 normal heart sound present, no gallops, no murmurs and no rubs GI Palpation (GI): Soft to palpation Back/Spine/Pelvis Other: unremarkable Skin General skin exam: no rashes or lesions noted Neuro General: patient oriented x3 Extrem General: Yes normal to inspection Psych Mental Status: mental status grossly normal Objective Labs and Meds 12/04/24 04:55 12/04/24 04:55 Progress Note: A&P Assessment and plan (1) Syncope: Status: Acute (2) Bradycardia: Status: Acute Plan Initial blood pressure upon arrival was 93/51 mm Hg. Heart rate in the 40s. Not clear if it is a vasovagal episode. Low blood pressure could play a role. Unlikely to be from the bradycardia itself. History of weight loss surgery and that may also play some role. Main recommendation is to liberalize salt intake and keep well hydrated. Bradycardia unlikely the etiology for her symptoms but we will check an ETT to look for chronotropic competence. Outpatient Holter monitor. Echocardiogram can be completed today. Follow up will be arranged. Time Spent With Patient Time: Total time managing care of this patient today ____ minutes. Progress Note: Quality Stroke Does the patient have a stroke diagnosis?: No Procedures Date of Service Date of Service: 12/05/24
[2024-12-05] MEDS: 0.9 % Sodium Chloride Flush 3 ML SYRINGE IVFLUSH ×3 (10:29→20:42)
--- NOTE | 2024-12-05 11:55 | P.PNIM_ITS ---
Subjective Subjective Date of Service: 12/05/24 Interval History: Follow up syncope, bradycardia No acute issues overnight. Still complains of dizziness even when lying in bed Review of Systems Denies chest pain Denies shortness of breath Denies nausea vomiting diarrhea Denies fever chills Physical Exam 2 Exam: Exam: Appearing in no acute distress lung sounds are clear to auscultation heart regular rate rhythm, clear S1, S2 positive bowel sounds, abdomen is soft, nontender neuro patient is alert x3, no focal deficits Vital Signs: Vital Signs: Last Vital Signs Temp 97.1 F 12/05/24 11:28 Pulse 54 12/05/24 11:28 Resp 18 12/05/24 11:28 BP 110/66 12/05/24 11:28 Pulse Ox 95 12/05/24 11:28 O2 Del Method Room Air 12/05/24 11:28 BMI result Body Mass Index 37.3 Objective Data Active Medications Acetaminophen (Acetaminophen 325 Mg Tablet) 975 mg PO Q6H PRN PRN Reason: Pain, Mild 1-3,fever,headache Calcium Carbonate (Calcium Carbonate 750 Mg Tab.Chew) 750 mg PO Q4H PRN PRN Reason: Heartburn Enoxaparin Sodium (Enoxaparin Sodium 40 Mg/0.4 Ml Syringe) 40 mg SUBCUT Q24H FOR[facility]LY [facility], 1928–1983 Last Admin: 12/05/24 10:26 Dose: 40 mg Documented By: JUAN CARLOS Escitalopram Oxalate (Escitalopram Oxalate 10 Mg Tablet) 10 mg PO DAILY FOR[facility]LY [facility], [facility]1983 Last Admin: 12/05/24 10:28 Dose: 10 mg Documented By: JUAN CARLOS Lorazepam (Lorazepam 0.5 Mg Tablet) 0.5 mg PO BID PRN PRN Reason: Panic Attack(S) Magnesium Hydroxide (Milk Of Magnesia 30 Ml Oral.Susp) 30 ml PO DAILY PRN PRN Reason: Constipation Melatonin (Melatonin 3 Mg Tablet) 6 mg PO BEDTIME PRN PRN Reason: Insomnia Sodium Chloride (0.9 % Sodium Chloride Flush 3 Ml Syringe) 3 ml IVFLUSH QSHIFT FOR[facility], 1928[facility]1983 Last Admin: 12/05/24 10:29 Dose: 3 ml Documented By: JUAN CARLOS Labs 12/04/24 04:55 12/04/24 04:55 Assessment and Plan (1) Bradycardia: Status: Acute (2) Syncope: Status: Acute Plan Harriett Roth is a 54 y/o woman admitted with persistent dizziness despite outpatient workup Syncope in the backdrop of bradycardia ongoing outpatient workup failed to demonstrate any acute causes continue telemetry appreciate Cardiology input> plan is for o/p holter, get echo Echo with normal EF, no valvular abnormalities ambulate with assist PT consult Anxiety well controlled with outpatient therapies Full code DVT prophylaxis with lovenox Quality Stroke Does the patient have a stroke diagnosis?: No VTE Prior VTE?: No VTE Risk Level:: Medical - moderate - high VTE Device Contraindication: Treatment Not Indicated VTE Drug Contraindication: N/A - Med Ordered
--- NOTE | 2024-12-05 14:39 | MHC.CM.PN ---
EMR REVIEWED, PER HOSPITALIST PT CONT'S TO C/O DIZZINESS WHILE LAYING FLAT, P.T. PENDING, CM WILL CONT TO FOLLOW DC NEEDS.
[2024-12-06] VITALS: BP 123/60; PULSE 54; RESP 16; TEMP 36.7; O2SAT 98
[2024-12-06 04:00] VITALS: BP 124/61; PULSE 51; RESP 16; TEMP 36.7; O2SAT 97
[2024-12-06 08:00] VITALS: BP 139/73; PULSE 51; RESP 18; TEMP 36.5; O2SAT 98
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
[2024-12-06] MEDS: 0.9 % Sodium Chloride Flush 3 ML SYRINGE IVFLUSH (08:49)
--- NOTE | 2024-12-06 11:36 | MHC.CM.PN ---
Patient has been medically cleared for dc to home today, self care.
[2024-12-06 11:53] VITALS: BP 137/79; PULSE 53; RESP 18; TEMP 36.4; O2SAT 99
== END 2024-12-06 18:06 | disposition home or self-care (01) | DRG 204 ==
LOC: HO.ED 21:10 → HO.EDOVER 21:41 → HO.IMC 12-04 07:57
PROVIDERS: Hospitalist; Physician Assistant Medical; Admitting Provider Internal Medicine; Emergency Provider Emergency Medicine; PCP Internal Medicine; Visit Provider Nurse Practitioner Acute Care
DX: R55 Syncope and collapse (principal); E66.811 Obesity, class 1; F41.9 Anxiety disorder, unspecified; R00.1 Bradycardia, unspecified; Z71.3 Dietary counseling and surveillance; Z68.37 Body mass index [BMI] 37.0-37.9, adult; Z98.84 Bariatric surgery status
CPT/HCPCS: 36415; 71045; 80048; 80053; 82947; 83735; 84443; 84484; 85025; 93005; 93306; 95816; 97161; 99222; 99285; J1650; Q9957

== ENCOUNTER 2024-12-03 21:37 | Outpatient (BNV) | payer OTHER, SELFPAY | END 2024-12-03 22:08 | PROVIDERS: Admitting Provider Internal Medicine; Emergency Provider Emergency Medicine; PCP Internal Medicine; Visit Provider Radiology Diagnostic Radiology | DX: R55 Syncope and collapse (principal) | CPT/HCPCS: 71045 ==

== ENCOUNTER 2024-12-03 21:37 | Outpatient (BNV) | payer OTHER, SELFPAY | END 2024-12-05 07:00 | PROVIDERS: Admitting Provider Internal Medicine; Emergency Provider Emergency Medicine; PCP Internal Medicine; Visit Provider Internal Medicine | DX: I34.81 Nonrheumatic mitral (valve) annulus calcification (principal); I36.1 Nonrheumatic tricuspid (valve) insufficiency | CPT/HCPCS: 93306 ==

== ENCOUNTER 2024-12-03 21:37 | Outpatient (BNV) | payer OTHER, SELFPAY | END 2024-12-05 14:50 | PROVIDERS: Admitting Provider Internal Medicine; Emergency Provider Emergency Medicine; PCP Internal Medicine; Visit Provider Psychiatry & Neurology Neurology | DX: R55 Syncope and collapse (principal) | CPT/HCPCS: 95816 ==

== ENCOUNTER → 2024-12-03 21:37 | Outpatient (BNV) | payer OTHER, SELFPAY | PROVIDERS: Admitting Provider Internal Medicine; Emergency Provider Emergency Medicine; PCP Internal Medicine; Visit Provider Internal Medicine | DX: R55 Syncope and collapse (principal); R00.1 Bradycardia, unspecified | CPT/HCPCS: 93010; 99223 ==

== ENCOUNTER → 2024-12-03 21:37 | Outpatient (BNV) | payer OTHER, SELFPAY | PROVIDERS: Admitting Provider Internal Medicine; Emergency Provider Emergency Medicine; PCP Internal Medicine; Visit Provider Internal Medicine | DX: R00.1 Bradycardia, unspecified (principal); R55 Syncope and collapse | CPT/HCPCS: 99223; 99232 ==

== ENCOUNTER → 2025-01-02 08:01 | Outpatient (REF) | payer OTHER, SELFPAY ==
--- NOTE | 2025-01-02 08:04 | HM_ITS ---
Conclusion: 1. Patient was monitored for total period of 2 days and 22 hours 2. Baseline was normal sinus rhythm with average heart of 53 beats per minute 3. No significant pauses noted but frequent sinus bradycardia noted with 80% of the time heart rate below 60 beats per minute 4. Rare PACs and PVCs noted 5. No patient reported events MTDD
--- NOTE | 2025-01-02 08:04 | CA_ITS ---
Acquisition Time: 2025-01-02 08:08:53 Total Exercise Time: 00:06:09 Test Indications: BRADYCARDIA/CHRONOTROPIC COMPETENCY Medications: ESCITALOPRAM LORAZAPAM PRN Protocol: ZE Max HR: 142 BPM 86% of Pred: 165 BPM Max BP: 132/68 mmHG Max Work Load: 7.2 METS Exercise stress test with exercise 6 mins 9 secs of Ze Protocol, achieving 86% MPHR, with reports of lightheadedness when treadmill stopped, no chest pain, without any arrythmias, with normotensive response to exercise. Without any EKG changes meeting criteria for ischemia. In recovery, the lightheadedness slowly improved. Test reviewed with Dr. Valdovinos. Referred By: Nishant Mattson Electronically Signed By: Shelton Lazo
== END ==
LOC: HO.CARD 08:01
PROVIDERS: PCP Internal Medicine; Visit Provider Internal Medicine
DX: R55 Syncope and collapse (principal); R00.1 Bradycardia, unspecified
CPT/HCPCS: 93017; 93242

== ENCOUNTER → 2025-01-02 08:04 | Outpatient (BNV) | payer OTHER, SELFPAY | PROVIDERS: PCP Internal Medicine | DX: R42 Dizziness and giddiness (principal); R94.31 Abnormal electrocardiogram [ECG] [EKG] | CPT/HCPCS: 93016; 93018 ==

== ENCOUNTER 2025-03-17 13:33 | Outpatient (AMB) | payer OTHER, SELFPAY ==
[2025-03-17 13:36] VITALS: BP 112/68; PULSE 54; BMI 38.7
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
== END 2025-03-17 14:06 | disposition home or self-care (01) ==
LOC: HO.HCS 13:34
PROVIDERS: PCP Internal Medicine; Visit Provider Nurse Practitioner Family
DX: R55 Syncope and collapse (principal); R00.1 Bradycardia, unspecified; Z51.89 Encounter for other specified aftercare
CPT/HCPCS: 99214; G2211

== ENCOUNTER → 2025-03-31 13:48 | Outpatient (REF) | payer OTHER, SELFPAY | LOC: HO.CARD 13:48 | PROVIDERS: PCP Internal Medicine; Visit Provider Nurse Practitioner Family | DX: R00.1 Bradycardia, unspecified (principal); R55 Syncope and collapse | CPT/HCPCS: 93270 ==

== ENCOUNTER → 2025-03-31 13:50 | Outpatient (BNV) | payer OTHER, SELFPAY | PROVIDERS: PCP Internal Medicine; Visit Provider Internal Medicine | DX: R00.1 Bradycardia, unspecified (principal) | CPT/HCPCS: 93272 ==